=== PATIENT | female | born 1965 | race Caucasian/White ===

== ENCOUNTER 2022-09-27 14:51 | Inpatient (IN) ==
--- NOTE | 2022-09-27 15:56 | Emergency Department Note ---
Impression & Plan Hyponatremia, HTN (hypertension), CKD (chronic kidney disease), Anemia ED Provider Note NAME: MARIO EISENBERG AGE: 56 SEX: F : 1965 ARRIVES VIA: Walk-In INFORMANT: Patient ED PROVIDER(S): Santo Malloy DO CHIEF COMPLAINT: weakness and leg swelling HPI: Patient is a 56-year-old female who presents the ER for weakness referred in by nephrology. Patient has stage IV kidney disease per her report. She follows with nephrology. She has been having swelling in her legs which has been going on for the past 24 hours. She denies all other complaints. Denies any headache or change in vision. No chest pain or shortness of breath. No nausea vomiting or diarrhea. No dysuria urgency or frequency. No other exacerbating or remitting factors. She has had a Mccormick for over a year. ROS: See above HPI for pertinent positives & negatives. A total of 10 systems reviewed and were otherwise negative. PAST MEDICAL HISTORY:See Below PAST SURGICAL HISTORY:See Below FAMILY HISTORY:See Below SOCIAL HISTORY:See Below HOME MEDICATIONS:See Below ALLERGIES:See Below VITALS:See Below PHYSICAL EXAMINATION: GENERAL: Sitting up in bed, alert, well appearing, well nourished, no distress, non-toxic EYE EXAM: normal conjunctiva. OROPHARYNX: no exudate, no erythema, lips, buccal mucosa, and tongue normal and mucous membranes are moist NECK: supple, no nuchal rigidity, no adenopathy, non-tender LUNGS: Clear to auscultation. Normal chest wall mechanics HEART: no murmurs, S1 normal and S2 normal ABDOMEN: abdomen soft, non-tender, normo-active bowel sounds, no masses, no rebound or guarding. UPPER EXTREMITIES: upper extremities are grossly normal. LOWER EXTREMITIES: Pitting edema in the bilateral lower extremities NEURO EXAM: Normal sensorium, cranial nerves II-XII grossly intact, normal speech, no gross weakness of arms, no gross weakness of legs. MEDICAL DECISION MAKING: Patient is a 56-year-old female who presents ER for feeling weak and rundown. IV was established blood work was obtained. Patient had blood work was done as an outpatient and upon arrival to the ER did call the hospitalist for admission as she already had blood work done today. They are gracious enough to see the patient prior to having lab results within our ER. She was referred in by her PCP. Our labs eventually showed mild anemia at 9.1. No old to compare to. BMP with a hyponatremia at 119. Creatinine was at 2.67. This consistent with baseline. proBNP was elevated at 558. UA resulted after admission which showed UTI. Will defer to the hospitalist for further care. Triage Nursing notes reviewed. Limited review of prior medical records performed Vital Signs: reviewed and remarkable for HTN and hypothermic Differential diagnosis: Infection, dehydration, metabolic abnormality, hypo/hyperglycemia, electrolyte disturbance, anemia, hypoxia, cardiac sources, intracerebral event, toxicologic, neurologic, as well as other pathologies. ER treatment provided: See below Diagnostics interpreted by me: ECG: Sinus bradycardia rate of 57 Normal axis T wave inversion in lead III QTC 457 Cardiac Monitoring: An order was placed for continuous cardiac monitoring. The monitor shows a rate of 60 with sinus rhythm. Laboratory studies: As stated above and show below. 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: No Beliefs That Will Affect Care: None Current Living Situation: Family Current Living Situation Comment: Lives with daughter Other Information That Helps Us Care for You: No Feels Safe at Home: Yes Safety Concerns: Feels Safe At This Time Assistive Devices: Denture - Upper, Denture - Lower, Glasses, Oxygen - at Night and Walker Allergies Allergies Allergy/AdvReac Type Severity Reaction Status Date / Time No Known Allergies Allergy Unverified 09/27/22 16:51 Home Meds Home Medications Medication Instructions Recorded Confirmed albuterol sulfate 90 mcg/actuation 2 puff inhalation Q4 PRN Shortness 09/27/22 09/27/22 aerosol inhaler (Ventolin HFA) Of Breath Or Wheezing amlodipine 5 mg tablet 5 mg PO QAM 09/27/22 09/27/22 aspirin 81 mg tablet,delayed 81 mg PO DAILY 09/27/22 09/27/22 release atorvastatin 40 mg tablet 40 mg PO QAM 09/27/22 09/27/22 dulaglutide 3 mg/0.5 mL 3 mg subcut WE 09/27/22 09/27/22 subcutaneous pen injector (Trulicity) fluticasone furoate 100 1 ea inhalation DAILY 09/27/22 09/27/22 mcg-vilanterol 25 mcg/dose inhalation powder (Breo Ellipta) furosemide 80 mg tablet 160 mg PO BID 09/27/22 09/27/22 insulin glargine U-300 conc 300 16 unit subcut HS 09/27/22 09/27/22 unit/mL (3 mL) subcutaneous pen (Toujeo Max U-300 SoloStar) metoprolol succinate 50 mg 50 mg PO QAM 09/27/22 09/27/22 tablet,extended release 24 hr nicotine 21 mg/24 hr daily 1 patch topical DIRECTED 09/27/22 09/27/22 transdermal patch nystatin 100,000 unit/gram topical 1 applic topical DIRECTED 09/27/22 09/27/22 powder pregabalin 25 mg capsule 25 mg PO TID 09/27/22 09/27/22 tiotropium bromide 2.5 2 puff inhalation QAM 09/27/22 09/27/22 mcg/actuation mist for inhalation (Spiriva Respimat) Results & Data (ED) Vital Signs Vital Signs - 24 hr 09/27/22 14:54 Temperature 35.8 C L Temperature Source Temporal Artery Scan Pulse Rate 57 L Respiratory Rate 18 Respiratory Effort / Characteristics Non-Labored Respiratory Depth Normal Respiratory Pattern Regular Blood Pressure 168/99 H Blood Pressure Mean 122 Pulse Oximetry 96 Oxygen Delivery Method Room Air Sepsis Recent Fever Within 48 Hours No Sepsis New/Unexplained Change in Mental Status N/A Sepsis Action Taken by Nursing No Action Required Laboratory Data Result diagrams: 09/27/22 15:37 09/27/22 19:20 Lab Results 09/27/22 09/27/22 09/27/22 Range/Units 15:37 15:37 15:37 WBC 5.94 (4.8-10.8) K/ul RBC 2.99 L (3.93-5.22) M/uL Hgb 9.1 L (12.0-16.0) g/dl Hct 26.6 L (34.1-44.9) % MCV 89.0 (80.0-100.0) fL MCH 30.4 (25.0-34.0) pg MCHC 34.2 (32.0-36.0) g/dL RDW Std Deviation 39.8 (36.4-46.3) fL RDW Coeff of Miguelangel 12.3 (11.5-14.5) % Plt Count 147 (130-400) K/uL MPV 10.0 (9.4-12.3) fL Immature Gran % (Auto) 0.5 % Neut % (Auto) 72.1 % Lymph % (Auto) 17.8 % [place] % (Auto) 5.6 % Eos % (Auto) 3.2 % Baso % (Auto) 0.8 % Neut # (Auto) 4.28 (1.4-6.5) K/uL Lymph # (Auto) 1.06 L (1.2-3.4) K/uL [place] # (Auto) 0.33 (0.24-0.82) K/uL Eos # (Auto) 0.19 (0-0.50) K/uL Baso # (Auto) 0.05 (0-0.2) K/uL Immature Gran # (Auto) 0.03 H (0.00-0.02) K/uL Sodium 119 L* (136-145) mmol/L Potassium 4.6 (3.5-5.1) mmol/L Chloride 88 L (98-107) mmol/L Carbon Dioxide 22 (21-32) mmol/L Anion Gap 9 (3-11) BUN 58 H (6-23) mg/dl Creatinine 2.54 H (0.6-1.2) mg/dl Est Cr Clr Drug Dosing Not Reportable Est GFR ( Amer) 23.3 ml/min Est GFR (Non-Af Amer) 20.1 ml/min BUN/Creatinine Ratio 22.8 H (10-20) Glucose 136 H (70-99(Fasting)) mg/dl Osmolality (280-300) mOsm/kg Calcium 7.2 L (8.5-10.1) mg/dl Total Bilirubin 0.4 (0.2-1.0) mg/dl AST 13 (13-39) U/L ALT 14 (7-52) U/L Alkaline Phosphatase 238 H (34-104) U/L B-Natriuretic Peptide 558 H (0-100) pg/ml Total Protein 5.9 L (6.0-8.3) gm/dl Albumin 3.2 L (3.4-5.0) gm/dl Globulin 2.7 (2.5-4.0) gm/dl Albumin/Globulin Ratio 1.2 (0.9-2) 09/27/22 Range/Units 15:37 WBC (4.8-10.8) K/ul RBC (3.93-5.22) M/uL Hgb (12.0-16.0) g/dl Hct (34.1-44.9) % MCV (80.0-100.0) fL MCH (25.0-34.0) pg MCHC (32.0-36.0) g/dL RDW Std Deviation (36.4-46.3) fL RDW Coeff of Miguelangel (11.5-14.5) % Plt Count (130-400) K/uL MPV (9.4-12.3) fL Immature Gran % (Auto) % Neut % (Auto) % Lymph % (Auto) % [place] % (Auto) % Eos % (Auto) % Baso % (Auto) % Neut # (Auto) (1.4-6.5) K/uL Lymph # (Auto) (1.2-3.4) K/uL [place] # (Auto) (0.24-0.82) K/uL Eos # (Auto) (0-0.50) K/uL Baso # (Auto) (0-0.2) K/uL Immature Gran # (Auto) (0.00-0.02) K/uL Sodium (136-145) mmol/L Potassium (3.5-5.1) mmol/L Chloride (98-107) mmol/L Carbon Dioxide (21-32) mmol/L Anion Gap (3-11) BUN (6-23) mg/dl Creatinine (0.6-1.2) mg/dl Est Cr Clr Drug Dosing Est GFR ( Amer) ml/min Est GFR (Non-Af Amer) ml/min BUN/Creatinine Ratio (10-20) Glucose (70-99(Fasting)) mg/dl Osmolality 269 L (280-300) mOsm/kg Calcium (8.5-10.1) mg/dl Total Bilirubin (0.2-1.0) mg/dl AST (13-39) U/L ALT (7-52) U/L Alkaline Phosphatase (34-104) U/L B-Natriuretic Peptide (0-100) pg/ml Total Protein (6.0-8.3) gm/dl Albumin (3.4-5.0) gm/dl Globulin (2.5-4.0) gm/dl Albumin/Globulin Ratio (0.9-2) Administered Medications Acetaminophen (Acetaminophen 325 Mg Tab) 650 mg PO Q4H PRN PRN Reason: Pain or Fever Stop: 10/27/22 16:29 Last Admin: 09/27/22 19:24 Dose: 650 mg Documented By: KAREN Insulin Aspart (Insulin Aspart Per Unit) 0 units SC ACHS [facility] Stop: 10/27/22 20:59 Last Admin: 09/27/22 21:10 Dose: Not Given Documented By: KAREN Nicotine (Nicotine 21 Mg/24 Hr Tdsy) 21 mg TD Q24H [facility] Stop: 10/27/22 19:59 Last Admin: 09/27/22 20:25 Dose: Not Given Documented By: KAREN Imaging Data Radiologist's Impression: Chest X-Ray 09/27/22 15:56 XR chest 1V portable CLINICAL HISTORY: Weakness. Shortness of breath. COMPARISON STUDY: No previous studies for comparison. FINDINGS: There is no pneumothorax. Blunting of the right costophrenic angle suggests a trace right pleural effusion. Suspected trace left pleural effusion. Moderate enlargement of the cardiac silhouette is noted. There is pulmonary vascular congestion with possible mild pulmonary edema. No consolidation is identified to suggest pneumonia. IMPRESSION: 1. Cardiomegaly. Pulmonary vascular congestion with possible mild pulmonary edema. 2. Trace bilateral pleural effusions. ACT 112: Negative or not required by law. Electronically signed by: Hamilton Alexander M.D. 09/27/2022 4:35 PM Discharge Plan Visit Data Chief Complaint: Referred by Doctor Stated Complaint: SODIUM LEVELS LOW ED Provider: Santo Malloy Discharge Problem: Hyponatremia, HTN (hypertension), CKD (chronic kidney disease), Anemia Patient Disposition: Admitted As Inpatient Discharge Instructions Interventions: ED Discharge Assessment Last Done: 09/27/22 17:51
[2022-09-27 16:11] LABS: Basophils # (auto) 0.05 K/uL (0-0.2); Basophils % (auto) 0.8 %; Eosinophils # (auto) 0.19 K/uL (0-0.50); Eosinophils % (auto) 3.2 %; Hematocrit (blood only) 26.6 % (34.1-44.9); Hemoglobin 9.1 g/dl (12.0-16.0); Immature Granulocytes # (auto) 0.03 K/uL (0.00-0.02); Immature Granulocytes % (auto) 0.5 %; Lymphocytes # (auto) 1.06 K/uL (1.2-3.4); Lymphocytes % (auto) 17.8 %; Mean Corpuscular Hemoglobin 30.4 pg (25.0-34.0); Mean Corpuscular Hgb Conc 34.2 g/dL (32.0-36.0); Monocytes # (auto) 0.33 K/uL (0.24-0.82); Monocytes % (auto) 5.6 %; Neutrophils # (auto) 4.28 K/uL (1.4-6.5); Neutrophils % (auto) 72.1 %; Platelet Count 147 K/uL (130-400); RDW Coefficient of Variation 12.3 % (11.5-14.5); RDW Standard Deviation 39.8 fL (36.4-46.3); Red Blood Count 2.99 M/uL (3.93-5.22); White Blood Count 5.94 K/ul (4.8-10.8)
[2022-09-27] MEDS ORDERED: DEXTROSE 50% 50 ML SYRINGE IV PRN ×2 (16:30→19:30)
[2022-09-27] MEDS ORDERED: PHARMACY GLYCEMIC MGMT CONSULT PRN (16:30)
[2022-09-27] MEDS ORDERED: GLUCOSE 10 TAB/TUBE PO PRN ×2 (16:30→19:30)
[2022-09-27] MEDS ORDERED: GLUCAGON FOR INJ 1 MG VIAL SQ PRN (16:30)
[2022-09-27] MEDS ORDERED: POLYETHYLENE (MIRALAX) 17 GM PACK PO PRN (16:30)
[2022-09-27] MEDS ORDERED: GLUCOSE 40% GEL 15 GM TUBE PO PRN ×2 (16:30→19:30)
[2022-09-27] MEDS ORDERED: CARBOHYDRATES FOR HYPOGLYCEMIA PO PRN ×2 (16:30→19:30)
--- NOTE | 2022-09-27 16:36 | XRay Report ---
XR chest 1V portable CLINICAL HISTORY: Weakness. Shortness of breath. COMPARISON STUDY: No previous studies for comparison. FINDINGS: There is no pneumothorax. Blunting of the right costophrenic angle suggests a trace right p leural effusion. Suspected trace left pleural effusion. Moderate enlargement of the cardiac silhouett e is noted. There is pulmonary vascular congestion with possible mild pulmonary edema. No consolidati on is identified to suggest pneumonia. IMPRESSION: 1. Cardiomegaly. Pulmonary vascular congestion with possible mild pulmonary edema. 2. Trace bilateral pleural effusions. ACT 112: Negative or not required by law. Electronically signed by: Hamilton Alexander M.D. 09/27/2022 4:35 PM
--- NOTE | 2022-09-27 16:47 | History & Physical Report ---
Date of Service September 27, 2022 Assessment & Plan (1) Hyponatremia: Plan: - acute on chronic hyponatremia in the setting of advancing CKD and nephrotic syndrome - urine studies ordered - urine protein/Cr ratio ordered - renal consult - home lasix recently increased to 160mg BID - will start on 80mg IV lasix BID while inpatient - PCU admission - BMP q8h (2) (HFpEF) heart failure with preserved ejection fraction: Plan: - does not appear in exacerbation - LE edema likely from nephrotic syndrome and worsening hyponatremia - continue home medications - CXR with pulmonary edema but exam is unremarkable and satting 95% on RA - lasix management as above (3) HTN (hypertension): Plan: - continue home meds (4) DM2 (diabetes mellitus, type 2): Plan: - A1c ordered - FSG AC+HS - continue home insulin - pharmacy glycemic consult placed - diabetic diet (5) HLD (hyperlipidemia): Plan: - continue statin (6) CKD (chronic kidney disease): Plan: - progressive kidney disease being followed by renal as outpatient - discussion of dialysis has been ongoing - monitor Cr - renal consulted for hyponatremia as above - avoid nephrotoxic medications (7) Anemia: Plan: - anemia of chronic disease, CKD - no signs of bleeding - hgb near baseline 9-10 - will monitor for now (8) COPD (chronic obstructive pulmonary disease): Plan: - does not appear to be in exacerbation - continue home inhalers Plan DVT ppx: heparin SC Code Status: Full Code Dispo: PCU Reggie Pickett MD Hospital Medicine History of Present Illness Chief Complaint: hyponatremia Primary Care Provider: Rodger Laguerre MD The patient is a 56 year old woman with pmh HTN, HFpEF. CKDIV, COPD, DM2, neurogenic bladder with chronic indwelling villela who presents with 24 hours of leg swelling and found to have Na 119 on outpatient labs, sent in by nephrology. Patient denies complaints except some mild weakness in lower extremities. Reports increased swelling in lower extremities as well. Denies chest pain, shortness of breath, n/v/d, abdominal pain, cough, fever or chills, discomfort around villela catheter. Has not changed her diet or appetite recently and recently had her lasix increased to 160mg daily by inspector clip on sunglasses due to sodium levels. Patient denies any other weakness or light headedness. In the ED, vitals were significant for temp 35.8C, HR 57, BP 168/99, 96% on RA. Labs were significant for hgb 9.1 (baseline around 10), NA 119, GFR 20, Cr 2.5 (Baseline around 2.2-2.5), Cl 88, ALP 238, BNP 558. She was admitted to medicine for management of hyponatremia. Allergies Allergy/AdvReac Type Severity Reaction Status Date / Time No Known Allergies Allergy Unverified 09/27/22 16:51 Home Medications Medication Instructions Recorded Confirmed Type albuterol sulfate 90 mcg/actuation 2 puff inhalation Q4 PRN Shortness 09/27/22 09/27/22 History aerosol inhaler (Ventolin HFA) Of Breath Or Wheezing amlodipine 5 mg tablet 5 mg PO QAM 09/27/22 09/27/22 History aspirin 81 mg tablet,delayed 81 mg PO DAILY 09/27/22 09/27/22 History release atorvastatin 40 mg tablet 40 mg PO QAM 09/27/22 09/27/22 History dulaglutide 3 mg/0.5 mL 3 mg subcut WE 09/27/22 09/27/22 History subcutaneous pen injector (Trulicity) fluticasone furoate 100 1 ea inhalation DAILY 09/27/22 09/27/22 History mcg-vilanterol 25 mcg/dose inhalation powder (Breo Ellipta) furosemide 80 mg tablet 160 mg PO BID 09/27/22 09/27/22 History insulin glargine U-300 conc 300 16 unit subcut HS 09/27/22 09/27/22 History unit/mL (3 mL) subcutaneous pen (Toujeo Max U-300 SoloStar) metoprolol succinate 50 mg 50 mg PO QAM 09/27/22 09/27/22 History tablet,extended release 24 hr nicotine 21 mg/24 hr daily 1 patch topical DIRECTED 09/27/22 09/27/22 History transdermal patch nystatin 100,000 unit/gram topical 1 applic topical DIRECTED 09/27/22 09/27/22 History powder pregabalin 25 mg capsule 25 mg PO TID 09/27/22 09/27/22 History tiotropium bromide 2.5 2 puff inhalation QAM 09/27/22 09/27/22 History mcg/actuation mist for inhalation (Spiriva Respimat) Past Med/Surg History Social History Smoking Status: Current every day smoker Tobacco Type: Cigarettes Preferred Language: Kiswahili Feels Safe at Home: Yes Review of Systems Review of Systems: All systems reviewed & are unremarkable except as noted in Subjective Physical Exam Physical Exam: GENERAL: Sitting up in bed, alert, well appearing, well nourished, no distress, non-toxic. Morbidly obese EYE EXAM: normal conjunctiva. OROPHARYNX: no exudate, no erythema, lips, buccal mucosa, and tongue normal and mucous membranes are moist NECK: supple, no nuchal rigidity, no adenopathy, non-tender LUNGS: Clear to auscultation. Normal chest wall mechanics HEART: no murmurs, S1 normal and S2 normal ABDOMEN: abdomen soft, non-tender, normo-active bowel sounds, no masses, no rebound or guarding. UPPER EXTREMITIES: upper extremities are grossly normal. LOWER EXTREMITIES: Pitting edema in the bilateral lower extremities. healing 2cm wound on medial R lower leg without erythema or drainage NEURO EXAM: Normal sensorium, cranial nerves II-XII grossly intact, normal speech, no gross weakness of arms, no gross weakness of legs. Results & Data Results & Data ([facility]) Vital Signs (Past 12 Hours) Vital Signs Temp Pulse Resp BP Pulse Ox O2 Del Method 09/27/22 14:54 35.8 C L 57 L 18 168/99 H 96 Room Air Diagnostic Findings Laboratory Results WBC 5.94 K/ul (4.8-10.8) 09/27/22 15:37 RBC 2.99 M/uL (3.93-5.22) L 09/27/22 15:37 Hgb 9.1 g/dl (12.0-16.0) L 09/27/22 15:37 Hct 26.6 % (34.1-44.9) L 09/27/22 15:37 MCV 89.0 fL (80.0-100.0) 09/27/22 15:37 MCH 30.4 pg (25.0-34.0) 09/27/22 15:37 MCHC 34.2 g/dL (32.0-36.0) 09/27/22 15:37 RDW Std Deviation 39.8 fL (36.4-46.3) 09/27/22 15:37 RDW Coeff of Miguelangel 12.3 % (11.5-14.5) 09/27/22 15:37 Plt Count 147 K/uL (130-400) 09/27/22 15:37 MPV 10.0 fL (9.4-12.3) 09/27/22 15:37 Immature Gran % (Auto) 0.5 % 09/27/22 15:37 Neut % (Auto) 72.1 % 09/27/22 15:37 Lymph % (Auto) 17.8 % 09/27/22 15:37 [place] % (Auto) 5.6 % 09/27/22 15:37 Eos % (Auto) 3.2 % 09/27/22 15:37 Baso % (Auto) 0.8 % 09/27/22 15:37 Neut # (Auto) 4.28 K/uL (1.4-6.5) 09/27/22 15:37 Lymph # (Auto) 1.06 K/uL (1.2-3.4) L 09/27/22 15:37 [place] # (Auto) 0.33 K/uL (0.24-0.82) 09/27/22 15:37 Eos # (Auto) 0.19 K/uL (0-0.50) 09/27/22 15:37 Baso # (Auto) 0.05 K/uL (0-0.2) 09/27/22 15:37 Immature Gran # (Auto) 0.03 K/uL (0.00-0.02) H 09/27/22 15:37 Impressions Chest X-Ray 09/27/22 15:56 XR chest 1V portable CLINICAL HISTORY: Weakness. Shortness of breath. COMPARISON STUDY: No previous studies for comparison. FINDINGS: There is no pneumothorax. Blunting of the right costophrenic angle suggests a trace right pleural effusion. Suspected trace left pleural effusion. Moderate enlargement of the cardiac silhouette is noted. There is pulmonary vascular congestion with possible mild pulmonary edema. No consolidation is identified to suggest pneumonia. IMPRESSION: 1. Cardiomegaly. Pulmonary vascular congestion with possible mild pulmonary edema. 2. Trace bilateral pleural effusions. ACT 112: Negative or not required by law. Electronically signed by: Hamilton Alexander M.D. 09/27/2022 4:35 PM Medications Administered Current Inpatient Medications Acetaminophen (Acetaminophen 325 Mg Tab) 650 mg PO Q4H PRN PRN Reason: Pain or Fever Stop: 10/27/22 16:29 Dextrose (Dextrose 50% 50 Ml Syringe) 25 - 50 ml IV UD PRN; Protocol PRN Reason: Hypoglycemia Protocol Stop: 10/27/22 16:29 Glucagon (Glucagon For Inj 1 Mg Vial) 1 mg SQ UD PRN; Protocol PRN Reason: Hypoglycemia Protocol Stop: 10/27/22 16:29 Glucose (Glucose 40% Gel 15 Gm Tube) 15 - 30 gm PO UD PRN; Protocol PRN Reason: Hypoglycemia Protocol Stop: 10/27/22 16:29 Glucose (Glucose 10 Tab/Tube) 4 - 8 tab PO UD PRN; Protocol PRN Reason: Hypoglycemia Treatment Stop: 10/27/22 16:29 Miscellaneous (Carbohydrates For Hypoglycemia ) 15 - 30 gm PO UD PRN PRN Reason: Hypoglycemia Protocol Stop: 10/27/22 16:29 Miscellaneous Information (Pharmacy Glycemic Mgmt Consult) 1 each N/A UD PRN PRN Reason: Consult Stop: 10/27/22 16:29 Polyethylene Glycol (Polyethylene (Miralax) 17 Gm Pack) 17 gm PO DAILY PRN PRN Reason: Constipation Stop: 10/27/22 16:29 Code Status & VTE Plan Code Status Full code VTE Prophylaxis Plan VTE Prophylaxis will be ordered: Yes
--- NOTE | 2022-09-27 16:57 | Electrocardiogram Report ---
Test Reason : Blood Pressure : / mmHG Vent. Rate : 057 BPM Atrial Rate : 057 BPM P-R Int : 172 ms QRS Dur : 090 ms QT Int : 470 ms P-R-T Axes : 000 013 005 degrees QTc Int : 457 ms Sinus bradycardia Low voltage QRS Septal infarct , age undetermined Nonspecific T wave abnormality Abnormal ECG No previous ECGs available Confirmed by Sergio Yañez ([id number]) on 09/27/2022 4:57:04 PM Referred By: Confirmed By:Sergio Yañez
[2022-09-27 17:10] LABS: Alanine Aminotransferase 14 U/L (7-52); Albumin Globulin Ratio 1.2 (0.9-2); Albumin Level 3.2 gm/dl (3.4-5.0); Alkaline Phosphatase 238 U/L (34-104); Anion Gap 9 (3-11); Aspartate Aminotransferase 13 U/L (13-39); BUN Creatinine Ratio 22.8 (10-20); Bilirubin,Total 0.4 mg/dl (0.2-1.0); Blood Urea Nitrogen 58 mg/dl (6-23); Calcium 7.2 mg/dl (8.5-10.1); Carbon Dioxide 22 mmol/L (21-32); Chloride 88 mmol/L (98-107); Est GFR (African American) 23.3 ml/min; Est GFR (Non-African American) 20.1 ml/min; Globulin 2.7 gm/dl (2.5-4.0); Glucose 136 mg/dl (70-99(Fasting)); Potassium 4.6 mmol/L (3.5-5.1); Sodium 119 mmol/L (136-145); Total Protein 5.9 gm/dl (6.0-8.3)
[2022-09-27] MEDS ORDERED: ALBUTEROL HFA 8 GM INHALER INH PRN (18:11)
[2022-09-27] MEDS: ACETAMINOPHEN 325 MG TAB PO PRN (19:24)
[2022-09-27] MEDS ORDERED: GLUCAGON FOR INJ 1 MG VIAL IM PRN (19:30)
[2022-09-27 19:48] LABS: Appearance Urine Clear (Clear); Bacteria Urine Automated 1+ (Negative); Bilirubin Urine Negative (Negative); Blood Urine 1+ (Negative); Cast Urine Automated 0 /lpf (0-5); Color Urine Yellow; Epithelial Cell Urine Auto 0-5 /lpf (0-5); Glucose Urine UA Trace (Negative); Ketones Urine Negative (Negative); Leukocyte Esterase Urine Trace (Negative); Nitrite Urine Positive (Negative); Protein Urine 2+ (Negative); RBC Urine Automated 0-4 /hpf (0-4); Specific Gravity Urine 1.006 (1.000-1.030); Urobilinogen Urine Negative (Negative)
[2022-09-27 20:20] LABS: BUN Creatinine Ratio 21.7 (10-20); Calcium 7.3 mg/dl (8.5-10.1); Creatinine Clr Calc Pharmacy 25.3 ml/min; Est GFR (African American) 21.9 ml/min; Est GFR (Non-African American) 18.9 ml/min; Potassium 4.5 mmol/L (3.5-5.1)
[2022-09-27 20:21] LABS: Creatinine Urine Random 9.7 mg/dl; Protein Creatinine Ratio Urine 14.4 (0-0.2); Total Protein Urine Random 139.8 mg/dl (0-11.9)
[2022-09-27] MEDS: NICOTINE 21 MG/24 HR TDSY TD SCH (20:25)
[2022-09-27] MEDS ORDERED: NON-FORMULARY MEDICATION (Insulin Glargine U-300 Conc [Toujeo Max U-300 Solostar] 300 unit SQ SCH (21:00)
[2022-09-27] MEDS ORDERED: LANTUS PER UNIT CHARGE SQ SCH (21:00)
[2022-09-27] MEDS: INSULIN ASPART PER UNIT SC SCH (21:10)
[2022-09-27] MEDS: PREGABALIN 25 MG CAP PO SCH (21:22)
[2022-09-27] MEDS: FUROSEMIDE 40 MG/4 ML VIAL IV SCH (21:23)
[2022-09-27 21:54] LABS: Thyroid Stimulating Hormone 5.331 uIu/ml (0.300-4.500)
[2022-09-27 22:26] LABS: T4 Free Thyroxine 0.74 ng/dl (0.61-1.60)
[2022-09-28 01:00] LABS: BUN Creatinine Ratio 21.8 (10-20); Calcium 6.9 mg/dl (8.5-10.1); Creatinine Clr Calc Pharmacy 24.9 ml/min; Est GFR (African American) 21.5 ml/min; Est GFR (Non-African American) 18.6 ml/min; Potassium 4.6 mmol/L (3.5-5.1)
[2022-09-28 07:47] LABS: Magnesium 1.9 mg/dl (1.7-2.4); Phosphorus 6.2 mg/dl (2.5-4.9)
[2022-09-28 07:50] LABS: BUN Creatinine Ratio 21.4 (10-20); Calcium 6.8 mg/dl (8.5-10.1); Creatinine Clr Calc Pharmacy 24.2 ml/min; Est GFR (African American) 20.7 ml/min; Est GFR (Non-African American) 17.9 ml/min
[2022-09-28 07:53] LABS: Hematocrit (blood only) 23.5 % (34.1-44.9); Hemoglobin 8.1 g/dl (12.0-16.0); Mean Corpuscular Hemoglobin 30.7 pg (25.0-34.0); Mean Corpuscular Hgb Conc 34.5 g/dL (32.0-36.0); Platelet Count 155 K/uL (130-400); RDW Coefficient of Variation 12.4 % (11.5-14.5); RDW Standard Deviation 39.8 fL (36.4-46.3); Red Blood Count 2.64 M/uL (3.93-5.22); White Blood Count 5.45 K/ul (4.8-10.8)
[2022-09-28 07:54] LABS: Basophils # (auto) 0.03 K/uL (0-0.2); Basophils % (auto) 0.6 %; Eosinophils # (auto) 0.08 K/uL (0-0.50); Eosinophils % (auto) 1.5 %; Immature Granulocytes # (auto) 0.02 K/uL (0.00-0.02); Immature Granulocytes % (auto) 0.4 %; Lymphocytes # (auto) 0.89 K/uL (1.2-3.4); Lymphocytes % (auto) 16.3 %; Monocytes # (auto) 0.39 K/uL (0.24-0.82); Monocytes % (auto) 7.2 %; Neutrophils # (auto) 4.04 K/uL (1.4-6.5)
[2022-09-28] MEDS: INSULIN ASPART PER UNIT SC SCH ×4 (08:00→21:36)
[2022-09-28] MEDS: ASPIRIN 81 MG ECTAB PO SCH (08:34)
[2022-09-28] MEDS: ATORVASTATIN 40 MG TAB PO SCH (08:35)
[2022-09-28] MEDS: UMECLIDINIUM BROMIDE 62.5MCG/BLISTER 7 PUFFS/INHALER INH SCH (08:35)
[2022-09-28] MEDS: FLUTICASONE/VILANTEROL 100/25MCG 14 PUFFS/INHALER INH SCH (08:35)
[2022-09-28] MEDS: FUROSEMIDE 40 MG/4 ML VIAL IV SCH ×3 (08:35→17:32)
[2022-09-28] MEDS: PREGABALIN 25 MG CAP PO SCH ×2 (08:38→21:22)
[2022-09-28] MEDS ORDERED: LANTUS PER UNIT CHARGE SQ SCH (09:00)
--- NOTE | 2022-09-28 09:58 | Nephrology Consultation ---
Date of Consultation September 28, 2022 Assessment & Plan (1) Hyponatremia: Patient with hypervolemic hyponatremia. Sodium is 119 since 09/27/2022 at 3 PM. She does not have mental status changes. She however remains pulm overload. -Fluid restriction of 1.2 L daily -Increase Lasix to 80 mg IV 3 times daily -Monitor input output and daily standing weight if able (2) CKD (chronic kidney disease): Patient with CKD stage IV due to diabetic nephropathy. Patient admitted with volume overload and hyponatremia. Will attempt aggressive diuresis. Patient is close to needing dialysis particularly if she fails diuresis. -Monitor renal function daily BMP -Avoid nephrotoxins such as contrast and renally dose medication for current GFR. History of Present Illness Reason for Consultation: Hyponatremia, CKD Requesting Physician: Reggie Pickett MD Attending Physician: Reggie Pickett MD History of Present Illness This is a 56-year-old female with history of CKD stage IV followed by Dr. Harley, type 2 diabetes, diastolic CHF, hypertension, neurogenic bladder with chronic Mccormick catheter who was admitted with the abnormal labs including hyponatremia with sodium of 119 and creatinine of 2.5. Main complaint is leg swelling which has been progressively getting worse over the past few weeks. She is on diuretics at home and reports compliance. Her daughter manages her medications. Patient is not sure what she takes. She received IV Lasix 80 mg twice daily. Patient is making urine about 1.5 L since admission and was net - 1.3 L. Sodium remains same at 119. She also has anemia with hemoglobin of 8.1. She reports some improvement since admission. No nausea or vomiting. No NSAID use. Allergies Allergy/AdvReac Type Severity Reaction Status Date / Time No Known Allergies Allergy Unverified 09/27/22 16:51 Home Medications Medication Instructions Recorded Confirmed Type albuterol sulfate 90 mcg/actuation 2 puff inhalation Q4 PRN Shortness 09/27/22 09/27/22 History aerosol inhaler (Ventolin HFA) Of Breath Or Wheezing amlodipine 5 mg tablet 5 mg PO QAM 09/27/22 09/27/22 History aspirin 81 mg tablet,delayed 81 mg PO DAILY 09/27/22 09/27/22 History release atorvastatin 40 mg tablet 40 mg PO QAM 09/27/22 09/27/22 History dulaglutide 3 mg/0.5 mL 3 mg subcut WE 09/27/22 09/27/22 History subcutaneous pen injector (Trulicity) fluticasone furoate 100 1 ea inhalation DAILY 09/27/22 09/27/22 History mcg-vilanterol 25 mcg/dose inhalation powder (Breo Ellipta) furosemide 80 mg tablet 160 mg PO BID 09/27/22 09/27/22 History insulin glargine U-300 conc 300 16 unit subcut HS 09/27/22 09/27/22 History unit/mL (3 mL) subcutaneous pen (Toujeo Max U-300 SoloStar) metoprolol succinate 50 mg 50 mg PO QAM 09/27/22 09/27/22 History tablet,extended release 24 hr nicotine 21 mg/24 hr daily 1 patch topical DIRECTED 09/27/22 09/27/22 History transdermal patch nystatin 100,000 unit/gram topical 1 applic topical DIRECTED 09/27/22 09/27/22 History powder pregabalin 25 mg capsule 25 mg PO TID 09/27/22 09/27/22 History tiotropium bromide 2.5 2 puff inhalation QAM 09/27/22 09/27/22 History mcg/actuation mist for inhalation (Spiriva Respimat) Patient History Social History Smoking Status: Current every day smoker Tobacco Type: Cigarettes Hx Alcohol Use: No Hx Substance Use: No Preferred Language: [place]an Communication Ability: Effective Director Trade Required: No Beliefs That Will Affect Care: None Current Living Situation: Family Current Living Situation Comment: Lives with daughter Other Information That Helps Us Care for You: No Feels Safe at Home: Yes Safety Concerns: Feels Safe At This Time Assistive Devices: Denture - Upper, Denture - Lower, Glasses, Oxygen - at Night and Walker Review of Systems Review of Systems: All other systems were reviewed and negative except as noted in HPI Physical Exam Physical Exam: General exam: Appears comfortable, no acute distress HEENT: Pupils are equal and reactive to light Neck: No JVD, neck is supple trachea is midline Respiratory system: Clear breath sounds bilaterally. Gastrointestinal: Abdomen is soft, non distended, non tender, bowel sounds are present CVS: Regular rate and rhythm. No murmurs, rubs or gallops Musculoskeletal: No joint or muscle tenderness Extremities: Non tender, 1+ edema, peripheral pulses are present Neuro: Oriented, no tremors, no focal neurological deficits Skin: No rashes Results & Data ([facility]) Vital Signs (Past 12 Hours) Vital Signs Temp Pulse Pulse Resp BP Pulse Ox O2 Del Method 09/28/22 07:59 36.7 C 59 L 18 110/60 94 Nasal Cannula 09/28/22 06:15 73 09/28/22 03:23 36.7 C 69 18 109/62 93 Nasal Cannula 09/27/22 23:11 64 09/27/22 22:51 36.7 C 68 18 104/63 92 Nasal Cannula O2 Flow Rate 09/28/22 07:59 2 09/28/22 06:15 09/28/22 03:23 2.0 09/27/22 23:11 09/27/22 22:51 2.0 Laboratory Results 09/28/22 07:16 09/27/22 09/27/22 09/28/22 15:37 15:37 07:16 WBC 5.94 5.45 RBC 2.99 L 2.64 L MCV 89.0 89.0 MCH 30.4 30.7 MCHC 34.2 34.5 RDW Std Deviation 39.8 39.8 RDW Coeff of Miguelangel 12.3 12.4 Plt Count 147 155 MPV 10.0 10.0 Phosphorus Albumin 3.2 L 09/28/22 07:16 WBC RBC MCV MCH MCHC RDW Std Deviation RDW Coeff of Miguelangel Plt Count MPV Phosphorus 6.2 H Albumin
[2022-09-28 10:17] LABS: Estimated Average Glucose 134 mg/dl; Hemoglobin A1C 6.3 % (4.5-5.6)
--- NOTE | 2022-09-28 10:46 | Hospitalist Progress Note ---
Date of Service September 28, 2022 Assessment & Plan (1) Hyponatremia: Plan: - acute on chronic hyponatremia in the setting of advancing CKD and nephrotic syndrome - urine protein/Cr ratio elevated - renal consult - recs appreciated - fluid restcition 1200cc daily - home lasix recently increased to 160mg BID - increase lasix to 80mg IV TID while inpatient - PCU admission - BMP q8h (2) (HFpEF) heart failure with preserved ejection fraction: Plan: - does not appear in exacerbation - LE edema likely from nephrotic syndrome and worsening hyponatremia - continue home medications - CXR with pulmonary edema but exam is unremarkable and satting 95% on RA - lasix management as above (3) HTN (hypertension): Plan: - continue home meds (4) DM2 (diabetes mellitus, type 2): Plan: - A1c 6.3% - FSG AC+HS - continue home insulin - pharmacy glycemic consult placed - diabetic diet (5) HLD (hyperlipidemia): Plan: - continue statin (6) CKD (chronic kidney disease): Plan: - progressive kidney disease being followed by renal as outpatient - discussion of dialysis has been ongoing - monitor Cr - renal consulted for hyponatremia as above - avoid nephrotoxic medications (7) Anemia: Plan: - anemia of chronic disease, CKD - no signs of bleeding - hgb near baseline 9-10 - will monitor for now (8) COPD (chronic obstructive pulmonary disease): Plan: - does not appear to be in exacerbation - continue home inhalers Plan DVT ppx: heparin SC Code Status: Full Code Dispo: PCU Reggie Pickett MD Hospital Medicine Admission and Anticipated Discharge Date Admission Date: September 27, 2022 Subjective Patient with HTN, HFpEF, CKDIV with nephrotic syndrome, COPD, DM2, neurogenic bladder with chronic indwelling villela found to have hyponatremia to 119 and volume overload. Started on aggressive diuresis with lasix 80mg TID, fluid restriction of 1200cc daily. Renal consulted and following. Patient reports feeling well today. Denies chest pain, shortness of breath, n/v/d, abdominal pain, fever or chills, cough. Says legs are improved from weakness standpoint and able to move them more freely. Review of Systems Review of Systems: All systems reviewed & are unremarkable except as noted in Subjective Physical Exam Physical Exam: GENERAL: Sitting up in bed, alert, well appearing, well nourished, no distress, non-toxic. Morbidly obese EYE EXAM: normal conjunctiva. OROPHARYNX: no exudate, no erythema, lips, buccal mucosa, and tongue normal and mucous membranes are moist NECK: supple, no nuchal rigidity, no adenopathy, non-tender LUNGS: Clear to auscultation. Normal chest wall mechanics HEART: no murmurs, S1 normal and S2 normal ABDOMEN: abdomen soft, non-tender, normo-active bowel sounds, no masses, no rebound or guarding. UPPER EXTREMITIES: upper extremities are grossly normal. LOWER EXTREMITIES: Pitting edema in the bilateral lower extremities with some improvement. healing 2cm wound on medial R lower leg without erythema or drainage NEURO EXAM: Normal sensorium, cranial nerves II-XII grossly intact, normal speech, no gross weakness of arms, no gross weakness of legs. Results & Data Results & Data ([facility]) Vital Signs (Past 12 Hours) Vital Signs Temp Pulse Pulse Resp BP Pulse Ox O2 Del Method 09/28/22 08:17 Room Air 09/28/22 07:59 36.7 C 59 L 18 110/60 94 Nasal Cannula 09/28/22 06:15 73 09/28/22 03:23 36.7 C 69 18 109/62 93 Nasal Cannula 09/27/22 23:11 64 09/27/22 22:51 36.7 C 68 18 104/63 92 Nasal Cannula O2 Flow Rate 09/28/22 08:17 09/28/22 07:59 2 09/28/22 06:15 09/28/22 03:23 2.0 09/27/22 23:11 09/27/22 22:51 2.0 Diagnostic Findings Laboratory Results WBC 5.45 K/ul (4.8-10.8) 09/28/22 07:16 RBC 2.64 M/uL (3.93-5.22) L 09/28/22 07:16 Hgb 8.1 g/dl (12.0-16.0) L 09/28/22 07:16 Hct 23.5 % (34.1-44.9) L 09/28/22 07:16 MCV 89.0 fL (80.0-100.0) 09/28/22 07:16 MCH 30.7 pg (25.0-34.0) 09/28/22 07:16 MCHC 34.5 g/dL (32.0-36.0) 09/28/22 07:16 RDW Std Deviation 39.8 fL (36.4-46.3) 09/28/22 07:16 RDW Coeff of Miguelangel 12.4 % (11.5-14.5) 09/28/22 07:16 Plt Count 155 K/uL (130-400) 09/28/22 07:16 MPV 10.0 fL (9.4-12.3) 09/28/22 07:16 Immature Gran % (Auto) 0.4 % 09/28/22 07:16 Neut % (Auto) 74.0 % 09/28/22 07:16 Lymph % (Auto) 16.3 % 09/28/22 07:16 Burke % (Auto) 7.2 % 09/28/22 07:16 Eos % (Auto) 1.5 % 09/28/22 07:16 Baso % (Auto) 0.6 % 09/28/22 07:16 Neut # (Auto) 4.04 K/uL (1.4-6.5) 09/28/22 07:16 Lymph # (Auto) 0.89 K/uL (1.2-3.4) L 09/28/22 07:16 Burke # (Auto) 0.39 K/uL (0.24-0.82) 09/28/22 07:16 Eos # (Auto) 0.08 K/uL (0-0.50) 09/28/22 07:16 Baso # (Auto) 0.03 K/uL (0-0.2) 09/28/22 07:16 Immature Gran # (Auto) 0.02 K/uL (0.00-0.02) 09/28/22 07:16 Sodium 119 mmol/L (136-145) L* 09/28/22 07:16 Potassium 5.0 mmol/L (3.5-5.1) 09/28/22 07:16 Chloride 91 mmol/L (98-107) L 09/28/22 07:16 Carbon Dioxide 23 mmol/L (21-32) 09/28/22 07:16 Anion Gap 5 (3-11) 09/28/22 07:16 BUN 60 mg/dl (6-23) H 09/28/22 07:16 Creatinine 2.80 mg/dl (0.6-1.2) H 09/28/22 07:16 Est Cr Clr Drug Dosing 24.2 ml/min 09/28/22 07:16 Est GFR ( Amer) 20.7 ml/min 09/28/22 07:16 Est GFR (Non-Af Amer) 17.9 ml/min 09/28/22 07:16 BUN/Creatinine Ratio 21.4 (10-20) H 09/28/22 07:16 Glucose 95 mg/dl (70-99(Fasting)) 09/28/22 07:16 POC Glucose 93 mg/dl (70-99) 09/28/22 08:23 Estimat Average Glucose 134 mg/dl 09/28/22 07:16 Hemoglobin A1c 6.3 % (4.5-5.6) H 09/28/22 07:16 Osmolality 269 mOsm/kg (280-300) L 09/27/22 15:37 Calcium 6.8 mg/dl (8.5-10.1) L 09/28/22 07:16 Phosphorus 6.2 mg/dl (2.5-4.9) H 09/28/22 07:16 Magnesium 1.9 mg/dl (1.7-2.4) 09/28/22 07:16 Total Bilirubin 0.4 mg/dl (0.2-1.0) 09/27/22 15:37 AST 13 U/L (13-39) 09/27/22 15:37 ALT 14 U/L (7-52) 09/27/22 15:37 Alkaline Phosphatase 238 U/L (34-104) H 09/27/22 15:37 B-Natriuretic Peptide 558 pg/ml (0-100) H 09/27/22 15:37 Total Protein 5.9 gm/dl (6.0-8.3) L 09/27/22 15:37 Albumin 3.2 gm/dl (3.4-5.0) L 09/27/22 15:37 Globulin 2.7 gm/dl (2.5-4.0) 09/27/22 15:37 Albumin/Globulin Ratio 1.2 (0.9-2) 09/27/22 15:37 TSH 5.331 uIu/ml (0.300-4.500) H 09/27/22 15:37 Free T4 0.74 ng/dl (0.61-1.60) 09/27/22 15:37 Urine Color Yellow 09/27/22 19:00 Urine Appearance Clear (Clear) 09/27/22 19:00 Urine pH 7.0 (4.5-7.5) 09/27/22 19:00 Ur Specific [place] 1.006 (1.000-1.030) 09/27/22 19:00 Urine Protein 2+ (Negative) H 09/27/22 19:00 Urine Glucose (UA) Trace (Negative) H 09/27/22 19:00 Urine Ketones Negative (Negative) 09/27/22 19:00 Urine Blood 1+ (Negative) H 09/27/22 19:00 Urine Nitrite Positive (Negative) A 09/27/22 19:00 Urine Bilirubin Negative (Negative) 09/27/22 19:00 Urine Urobilinogen Negative (Negative) 09/27/22 19:00 Ur Leukocyte Esterase Trace (Negative) H 09/27/22 19:00 Urine WBC (Auto) 1-5 /hpf (0-5) 09/27/22 19:00 Urine RBC (Auto) 0-4 /hpf (0-4) 09/27/22 19:00 U Hyaline Cast (Auto) 0 /lpf (0-5) 09/27/22 19:00 U Epithel Cells (Auto) 0-5 /lpf (0-5) 09/27/22 19:00 Urine Bacteria (Auto) 1+ (Negative) H 09/27/22 19:00 Urine Osmolality 146 mOsm/kg (500-800) L 09/27/22 19:00 Ur Random Creatinine 9.6 mg/dl 09/27/22 19:00 Ur Random Creatinine 9.7 mg/dl 09/27/22 19:00 U Random Total Protein 139.8 mg/dl (0-11.9) H 09/27/22 19:00 Ur Random Sodium 36 mmol/L 09/27/22 19:00 Protein/Creatinin Ratio 14.4 (0-0.2) H 09/27/22 19:00 SARS-CoV-2, RNA, NAAT NEGATIVE (NEGATIVE) 09/27/22 17:50 Impressions Chest X-Ray 09/27/22 15:56 XR chest 1V portable CLINICAL HISTORY: Weakness. Shortness of breath. COMPARISON STUDY: No previous studies for comparison. FINDINGS: There is no pneumothorax. Blunting of the right costophrenic angle suggests a trace right pleural effusion. Suspected trace left pleural effusion. Moderate enlargement of the cardiac silhouette is noted. There is pulmonary vascular congestion with possible mild pulmonary edema. No consolidation is identified to suggest pneumonia. IMPRESSION: 1. Cardiomegaly. Pulmonary vascular congestion with possible mild pulmonary edema. 2. Trace bilateral pleural effusions. ACT 112: Negative or not required by law. Electronically signed by: Hamilton Alexander M.D. 09/27/2022 4:35 PM Medications Administered Current Inpatient Medications Acetaminophen (Acetaminophen 325 Mg Tab) 650 mg PO Q4H PRN PRN Reason: Pain or Fever Stop: 10/27/22 16:29 Last Admin: 09/27/22 19:24 Dose: 650 mg Albuterol (Albuterol Hfa 8 Gm Inhaler) 2 puffs INH Q4R PRN PRN Reason: Shortness Of Breath Or Wheezing Stop: 10/27/22 18:10 Aspirin (Aspirin 81 Mg Ectab) 81 mg PO DAILY MARKUS Stop: 10/28/22 08:59 Last Admin: 09/28/22 08:34 Dose: 81 mg Atorvastatin Calcium (Atorvastatin 40 Mg Tab) 40 mg PO QAM MARKUS Stop: 10/28/22 08:59 Last Admin: 09/28/22 08:35 Dose: 40 mg Dextrose (Dextrose 50% 50 Ml Syringe) 25 - 50 ml IV UD PRN; Protocol PRN Reason: Hypoglycemia Protocol Stop: 10/27/22 16:29 Dextrose (Dextrose 50% 50 Ml Syringe) 25 - 50 ml IV UD PRN; Protocol PRN Reason: Hypoglycemia Protocol Stop: 10/27/22 19:29 Fluticasone/Vilanterol (Fluticasone/Vilanterol 100/25mcg 14 Puffs/Inhaler) 1 puffs INH DAILY MARKUS Stop: 10/28/22 08:59 Last Admin: 09/28/22 08:35 Dose: 1 puffs Furosemide (Furosemide 40 Mg/4 Ml Vial) 80 mg IV TIDM MARKUS Stop: 10/28/22 11:59 Glucagon (Glucagon For Inj 1 Mg Vial) 1 mg SQ UD PRN; Protocol PRN Reason: Hypoglycemia Protocol Stop: 10/27/22 16:29 Glucagon (Glucagon For Inj 1 Mg Vial) 1 mg IM UD PRN; Protocol PRN Reason: Hypoglycemia Protocol Stop: 10/27/22 19:29 Glucose (Glucose 40% Gel 15 Gm Tube) 15 - 30 gm PO UD PRN; Protocol PRN Reason: Hypoglycemia Protocol Stop: 10/27/22 16:29 Glucose (Glucose 10 Tab/Tube) 4 - 8 tab PO UD PRN; Protocol PRN Reason: Hypoglycemia Treatment Stop: 10/27/22 16:29 Glucose (Glucose 40% Gel 15 Gm Tube) 15 - 30 gm PO UD PRN; Protocol PRN Reason: Hypoglycemia Protocol Stop: 10/27/22 19:29 Glucose (Glucose 10 Tab/Tube) 4 - 8 tab PO UD PRN; Protocol PRN Reason: Hypoglycemia Protocol Stop: 10/27/22 19:29 Last Admin: 09/28/22 03:47 Dose: 4 tab Insulin Aspart (Insulin Aspart Per Unit) 0 units SC ACHS MARKUS Stop: 10/27/22 20:59 Last Admin: 09/28/22 08:00 Dose: Not Given Miscellaneous (Carbohydrates For Hypoglycemia ) 15 - 30 gm PO UD PRN PRN Reason: Hypoglycemia Protocol Stop: 10/27/22 16:29 Last Admin: 09/28/22 03:20 Dose: 15 gm Miscellaneous (Carbohydrates For Hypoglycemia ) 15 - 30 gm PO UD PRN PRN Reason: Hypoglycemia Treatment Stop: 10/27/22 19:29 Miscellaneous (Remove Nicoderm Patch) 1 each N/A Q24H [facility] Stop: 10/28/22 19:58 Miscellaneous Information (Pharmacy Glycemic Mgmt Consult) 1 each N/A UD PRN PRN Reason: Consult Stop: 10/27/22 16:29 Nicotine (Nicotine 21 Mg/24 Hr Tdsy) 21 mg TD Q24H [facility] Stop: 10/27/22 19:59 Last Admin: 09/27/22 20:25 Dose: Not Given Polyethylene Glycol (Polyethylene (Miralax) 17 Gm Pack) 17 gm PO DAILY PRN PRN Reason: Constipation Stop: 10/27/22 16:29 Pregabalin (Pregabalin 25 Mg Cap) 25 mg PO BID [facility] Stop: 10/27/22 20:59 Last Admin: 09/28/22 08:38 Dose: 25 mg Umeclidinium [place] (Umeclidinium [place] 62.5mcg/Blister 7 Puffs/Inhaler) 1 puffs INH QAM [facility] Stop: 10/28/22 08:59 Last Admin: 09/28/22 08:35 Dose: 1 puffs
--- NOTE | 2022-09-28 13:27 | Pharmacy Report ---
Pharmacy Glycemic Short Note 2 - Date of Service September 28, 2022 - Glycemic Short BSG Results (Last 24 hours): 09/27/22 09/27/22 09/27/22 15:37 19:20 20:13 Glucose 136 H 96 POC Glucose 90 09/28/22 09/28/22 09/28/22 00:26 03:15 03:32 Glucose 67 L POC Glucose 65 L* 76 09/28/22 09/28/22 09/28/22 04:05 06:18 07:10 Glucose POC Glucose 110 H 91 207 H 09/28/22 09/28/22 09/28/22 07:16 08:23 11:23 Glucose 95 POC Glucose 93 112 H OUTPATIENT ANTIDIABETIC REGIMEN: * Toujeo 16 units SC HS * Trulicity SC weekly (Wednesdays) HbA1c: 6.3% (09/28/22) ASSESSMENT: * DW is a 56 year old female who presented 09/27/22 with weakness and bilateral leg swelling * Pertinent PMH includes acute on chronic hyponatremia, HFpEF, HTN, T2DM, and CKD * BSGs have been very well-controlled without any insulin * Outlier BSG this morning of 207 mg/dL, inclined to believe this is inaccurate given discrepancy with glucose on BMP and subsequent POC of 95 and 93 mg/dL respectively * Will hold off on basal insulin at this time and utilize loose Novolog parameters only PLAN FOR INPATIENT GLYCEMIC CONTROL: * Basal insulin * hold * Bolus insulin * NovoLog per scale ACHS or Q6hrs while NPO * Goal Range: Low 120 mg/dL - High 150 mg/dL * Correction Factor: 35 mg/dL/unit * Nutritional / Prandial insulin per carb ratio of 1 unit per 12 grams CHO consumed
[2022-09-28 18:21] LABS: BUN Creatinine Ratio 20.3 (10-20); Calcium 6.7 mg/dl (8.5-10.1); Creatinine Clr Calc Pharmacy 22.6 ml/min; Est GFR (African American) 19.1 ml/min; Est GFR (Non-African American) 16.4 ml/min; Potassium 4.7 mmol/L (3.5-5.1)
[2022-09-28] MEDS: NICOTINE 21 MG/24 HR TDSY TD SCH (21:22)
[2022-09-29] MEDS: ACETAMINOPHEN 325 MG TAB PO PRN (04:52)
[2022-09-29 07:31] LABS: Hemoglobin 7.8 g/dl (12.0-16.0); Mean Corpuscular Hemoglobin 30.7 pg (25.0-34.0); Mean Corpuscular Hgb Conc 33.9 g/dL (32.0-36.0); Mean Corpuscular Volume 90.6 fL (80.0-100.0); Mean Platelet Volume 9.7 fL (9.4-12.3); Platelet Count 124 K/uL (130-400); RDW Coefficient of Variation 12.4 % (11.5-14.5); RDW Standard Deviation 41.1 fL (36.4-46.3); Red Blood Count 2.54 M/uL (3.93-5.22); White Blood Count 5.08 K/ul (4.8-10.8)
[2022-09-29 07:54] LABS: Magnesium 1.9 mg/dl (1.7-2.4); Phosphorus 6.2 mg/dl (2.5-4.9)
[2022-09-29] MEDS ORDERED: STAT IV STA (07:57)
[2022-09-29] MEDS ORDERED: CALCIUM GLUCONATE 10% 1,000 MG in DEXTROSE 5% 50 ML IV ONE (08:15)
[2022-09-29] MEDS: ATORVASTATIN 40 MG TAB PO SCH (08:48)
[2022-09-29] MEDS: ASPIRIN 81 MG ECTAB PO SCH (08:48)
[2022-09-29] MEDS: FLUTICASONE/VILANTEROL 100/25MCG 14 PUFFS/INHALER INH SCH (08:48)
[2022-09-29] MEDS: UMECLIDINIUM BROMIDE 62.5MCG/BLISTER 7 PUFFS/INHALER INH SCH (08:49)
[2022-09-29] MEDS: FUROSEMIDE 40 MG/4 ML VIAL IV SCH ×3 (08:49→17:10)
[2022-09-29] MEDS: INSULIN ASPART PER UNIT SC SCH ×4 (08:54→20:18)
[2022-09-29] MEDS: PREGABALIN 25 MG CAP PO SCH ×2 (08:54→20:19)
--- NOTE | 2022-09-29 10:40 | Nephrology Progress Note ---
Date of Service September 29, 2022 Assessment & Plan (1) Hyponatremia: Plan: Patient with hypervolemic hyponatremia. Sodium 122 yesterday. She does not have mental status changes. She however remains fluid overload. Sodium level today is pending -Fluid restriction of 1.2 L daily -Continue Lasix to 80 mg IV 3 times daily -Monitor input output and daily standing weight if able (2) CKD (chronic kidney disease): Plan: Patient with CKD stage IV due to diabetic nephropathy. Patient admitted with volume overload and hyponatremia. Will attempt aggressive diuresis. Patient is close to needing dialysis particularly if she fails diuresis. -Monitor renal function daily BMP -Avoid nephrotoxins such as contrast and renally dose medication for current GFR. Admission and Anticipated Discharge Date Admission Date: September 27, 2022 Subjective Seen for hyponatremia. Patient still complaining of leg swelling. No shortness of breath. Review of Systems Review of Systems: All other systems were reviewed and negative except as noted in HPI Physical Exam Physical Exam: General exam: Appears comfortable, no acute distress HEENT: Pupils are equal and reactive to light Neck: No JVD, neck is supple trachea is midline Respiratory system: Clear breath sounds bilaterally. Gastrointestinal: Abdomen is soft, non distended, non tender, bowel sounds are present CVS: Regular rate and rhythm. No murmurs, rubs or gallops Musculoskeletal: No joint or muscle tenderness Extremities: Non tender, 1+ edema, peripheral pulses are present Neuro: Oriented, no tremors, no focal neurological deficits Skin: No rashes Results & Data ([facility]) Vital Signs (Past 12 Hours) Vital Signs Temp Pulse Pulse Resp BP BP Pulse Ox 09/29/22 08:45 09/29/22 07:37 36.8 C 68 18 147/54 H 92 09/29/22 06:03 70 09/29/22 02:49 36.7 C 68 20 128/62 98 09/29/22 00:01 64 09/28/22 23:07 36.8 C 66 17 125/67 96 O2 Del Method O2 Flow Rate 09/29/22 08:45 Room Air 09/29/22 07:37 Nasal Cannula 1 09/29/22 06:03 09/29/22 02:49 Nasal Cannula 1 09/29/22 00:01 09/28/22 23:07 Nasal Cannula 1 Laboratory Results 09/29/22 09/29/22 07:16 07:16 WBC 5.08 RBC 2.54 L MCV 90.6 MCH 30.7 MCHC 33.9 RDW Std Deviation 41.1 RDW Coeff of Miguelangel 12.4 Plt Count 124 L MPV 9.7 Phosphorus 6.2 H
[2022-09-29 10:52] LABS: BUN Creatinine Ratio 20.5 (10-20); Calcium 7.4 mg/dl (8.5-10.1); Creatinine Clr Calc Pharmacy 21.8 ml/min; Est GFR (African American) 18.2 ml/min; Est GFR (Non-African American) 15.7 ml/min; Potassium 4.1 mmol/L (3.5-5.1)
--- NOTE | 2022-09-29 12:37 | Hospitalist Progress Note ---
Date of Service September 29, 2022 Assessment & Plan (1) Hyponatremia: Plan: Acute on chronic hyponatremia Volume overload-POA In advancing CKD and nephrotic syndrome CKD IV due to diabetic nephropathy Continue IV Lasix 80 mg 3 times daily Continue fluid restriction 1.2 L/day Monitor sodium levels: 124 today Appreciate nephrology input (2) (HFpEF) heart failure with preserved ejection fraction: Plan: - Less likely in exacerbation - LE edema likely from nephrotic syndrome, CKD IV -CXR:Cardiomegaly. Pulmonary vascular congestion with possible mild pulmonary edema. Trace bilateral pleural effusions. - continue home medications --Diuresis as above (3) HTN (hypertension): Plan: - continue home meds (4) DM2 (diabetes mellitus, type 2): Plan: - A1c 6.3% - FSG AC+HS - continue home insulin - pharmacy glycemic consult placed - diabetic diet (5) HLD (hyperlipidemia): Plan: - continue statin (6) CKD (chronic kidney disease): Plan: - progressive kidney disease -- Follows with nephrology as outpatient - discussion of dialysis has been ongoing - monitor Cr - avoid nephrotoxic meds as able (7) Anemia: Plan: - anemia of chronic disease, CKD - no signs of bleeding - Baseline Hb 9-10 -Monitor CBC (8) COPD (chronic obstructive pulmonary disease): Plan: - No signs of exacerbation - continue home inhalers Hypocalcemia Check Vit D levels Replace Calcium as needed Monitor Plan DVT px: Heparin SQ Code Status: Full Code Disposition PT/OT prior to discharge Admission and Anticipated Discharge Date Admission Date: September 27, 2022 Subjective Patient is seen and examined at bedside Leg swelling slowly improving Denies any chest pain, shortness of breath, dizziness, nausea, abdominal pain Offers no other complaints Sodium levels 124 today Review of Systems Review of Systems: All systems reviewed & are unremarkable except as noted in Subjective Physical Exam Physical Exam: Physical Exam: Vitals signs as noted above General Appearance:Morbidly Obese, no apparent distress Head: normocephalic, Atraumatic Eyes: normal inspection, EOMI Neck: supple, Trachea midline Respiratory/Chest: Decrease breath sounds, CTA, No accessory muscle use Cardiovascular: S1, S2, + murmur Abdomen/GI:Soft, Non tender, Bowel sounds present Extremities/Musculoskeletal:normal inspection, 1-2+ B/L LE edema Neurologic/Psych:AAOX3, grossly no focal neurological deficits Skin: normal color, warm Results & Data Results & Data ([facility]) Vital Signs (Past 12 Hours) Vital Signs Temp Pulse Pulse Resp BP BP Pulse Ox 09/29/22 11:55 36.7 C 67 20 182/70 H 94 09/29/22 08:45 09/29/22 07:37 36.8 C 68 18 147/54 H 92 09/29/22 06:03 70 09/29/22 02:49 36.7 C 68 20 128/62 98 O2 Del Method O2 Flow Rate 09/29/22 11:55 Room Air 09/29/22 08:45 Room Air 09/29/22 07:37 Nasal Cannula 1 09/29/22 06:03 09/29/22 02:49 Nasal Cannula 1 Laboratory Results Short CBC 09/29/22 Range/Units 07:16 WBC 5.08 (4.8-10.8) K/ul Hgb 7.8 L (12.0-16.0) g/dl Hct 23.0 L (34.1-44.9) % Plt Count 124 L (130-400) K/uL BMP 09/28/22 09/29/22 17:42 10:16 Sodium 122 L 124 L Potassium 4.7 4.1 Chloride 91 L 92 L Carbon Dioxide 22 25 BUN 61 H 64 H Creatinine 3.00 H 3.12 H Glucose 112 H 102 H Calcium 6.7 L 7.4 L
[2022-09-29] MEDS: NICOTINE 21 MG/24 HR TDSY TD SCH (20:20)
[2022-09-29] MEDS: HEPARIN SOD 5,000 UNIT/0.5 ML VIAL SQ SCH (21:59)
[2022-09-30 08:03] LABS: Hemoglobin 8.1 g/dl (12.0-16.0); Mean Corpuscular Hemoglobin 30.5 pg (25.0-34.0); Mean Corpuscular Hgb Conc 33.8 g/dL (32.0-36.0); Mean Corpuscular Volume 90.2 fL (80.0-100.0); Mean Platelet Volume 10.1 fL (9.4-12.3); Platelet Count 159 K/uL (130-400); RDW Coefficient of Variation 12.4 % (11.5-14.5); RDW Standard Deviation 40.8 fL (36.4-46.3); Red Blood Count 2.66 M/uL (3.93-5.22); White Blood Count 4.57 K/ul (4.8-10.8)
[2022-09-30] MEDS: ASPIRIN 81 MG ECTAB PO SCH (08:13)
[2022-09-30] MEDS: UMECLIDINIUM BROMIDE 62.5MCG/BLISTER 7 PUFFS/INHALER INH SCH (08:14)
[2022-09-30] MEDS: ATORVASTATIN 40 MG TAB PO SCH (08:14)
[2022-09-30] MEDS: FLUTICASONE/VILANTEROL 100/25MCG 14 PUFFS/INHALER INH SCH (08:14)
[2022-09-30] MEDS: INSULIN ASPART PER UNIT SC SCH ×4 (08:19→20:33)
[2022-09-30] MEDS: FUROSEMIDE 40 MG/4 ML VIAL IV SCH ×3 (08:19→16:51)
[2022-09-30] MEDS: PREGABALIN 25 MG CAP PO SCH ×2 (08:20→20:37)
[2022-09-30 08:33] LABS: BUN Creatinine Ratio 18.6 (10-20); Calcium 7.2 mg/dl (8.5-10.1); Creatinine Clr Calc Pharmacy 19.4 ml/min; Est GFR (African American) 16.7 ml/min; Est GFR (Non-African American) 14.4 ml/min; Potassium 4.1 mmol/L (3.5-5.1)
--- NOTE | 2022-09-30 08:46 | Nephrology Progress Note ---
Date of Service September 30, 2022 Assessment & Plan (1) Hyponatremia: Plan: hypervolemic hyponatremia. Sodium 124 yesterday>129 today, acceptable rate of change. She does not have mental status changes. She however remains fluid overload. 6.2L negative past 24 hrs -Fluid restriction of 1.2 L daily -Continue Lasix to 80 mg IV 3 times daily -Monitor input output and daily standing weight if able (2) CKD (chronic kidney disease): Plan: Patient with CKD stage IV due to diabetic nephropathy. Patient admitted with volume overload and hyponatremia. Will attempt aggressive diuresis. Patient is close to needing dialysis particularly if she fails diuresis. baseline creatinine 2.7-3.1. -Monitor renal function daily BMP -Avoid nephrotoxins such as contrast and renally dose medication for current GFR. Admission and Anticipated Discharge Date Admission Date: September 27, 2022 Subjective no acute interval clinical event except 6+ L negative on day. edema gone she states Review of Systems Review of Systems: All systems reviewed & are unremarkable except as noted in Subjective Physical Exam Constitutional: well developed and well nourished Eyes: EOM intact bilaterally ENMT: Ears: no external ear abnormality Nose: no external nose abnormality Mouth: + dry oral mucous membranes Neck: no nuchal rigidity Respiratory: normal respiratory effort Auscultation: + diminished lung sounds and + crackles (fine bibasilar) Cardiovascular: Rate/Rhythm: regular rate and regular rhythm Extremities: no edema Gastrointestinal (Abdomen): Inspection/Auscultation: normal bowel sounds Percussion/Palpation: abdomen soft; abdomen nontender Musculoskeletal: Extremities: strength 5/5 throughout Skin: no rashes, warm and dry Neurologic: perez, fluent speech, no tremor Results & Data ([facility]) Vital Signs (Past 12 Hours) Vital Signs Temp Pulse Pulse Resp BP Pulse Ox O2 Del Method 09/30/22 07:29 36.8 C 63 18 138/63 97 Nasal Cannula 09/30/22 03:14 36.7 C 72 18 128/65 96 Nasal Cannula 09/29/22 23:44 36.6 C 79 18 146/72 H 100 Nasal Cannula 09/29/22 22:52 77 O2 Flow Rate 09/30/22 07:29 2 09/30/22 03:14 2 09/29/22 23:44 2 09/29/22 22:52 Laboratory Results 09/30/22 06:37 12/12/22 06:37
[2022-09-30] MEDS ORDERED: STAT IV STA (09:06)
[2022-09-30] MEDS ORDERED: CALCIUM GLUCONATE 10% 1,000 MG in DEXTROSE 5% 50 ML IV ONE (09:15)
[2022-09-30] MEDS: CHOLECALCIFEROL 1,000 UNITS 25 MCG TAB PO SCH (10:03)
[2022-09-30] MEDS: HEPARIN SOD 5,000 UNIT/0.5 ML VIAL SQ SCH ×2 (10:41→20:37)
--- NOTE | 2022-09-30 13:07 | Hospitalist Progress Note ---
Date of Service September 30, 2022 Assessment & Plan (1) Hyponatremia: Plan: Acute on chronic hyponatremia Volume overload-POA In advancing CKD and nephrotic syndrome CKD IV due to diabetic nephropathy Continue IV Lasix 80 mg 3 times daily Continue fluid restriction 1.2 L/day Monitor sodium levels: 129 today Appreciate nephrology input Needs follow up with Nephrology upon discharge (2) (HFpEF) heart failure with preserved ejection fraction: Plan: - Less likely in exacerbation - LE edema likely from nephrotic syndrome, CKD IV -CXR:Cardiomegaly. Pulmonary vascular congestion with possible mild pulmonary edema. Trace bilateral pleural effusions. - continue home medications --Diuresis as above (3) HTN (hypertension): Plan: - continue home meds (4) DM2 (diabetes mellitus, type 2): Plan: - A1c 6.3% - FSG AC+HS - continue home insulin - pharmacy glycemic consult placed - diabetic diet (5) HLD (hyperlipidemia): Plan: - continue statin (6) CKD (chronic kidney disease): Plan: - progressive kidney disease -- Follows with nephrology as outpatient - discussion of dialysis has been ongoing - monitor Cr 3.3 today - avoid nephrotoxic meds as able (7) Anemia: Plan: - anemia of chronic disease, CKD - no signs of bleeding - Baseline Hb 9-10 -Monitor CBC (8) COPD (chronic obstructive pulmonary disease): Plan: - No signs of exacerbation - continue home inhalers Hypocalcemia Vit D deficiency Vit D levels:15.6 Replace Calcium as needed Started on Vit D supplements Monitor Plan DVT px: Heparin SQ Code Status: Full Code Disposition PT/OT prior to discharge Admission and Anticipated Discharge Date Admission Date: September 27, 2022 Subjective Patient is seen and examined at bedside Offers no complaints Discussed with Nephrology today Leg swelling improving Denies any chest pain, shortness of breath, dizziness, nausea, abdominal pain Sodium levels 129 today Eager to get discharged Review of Systems Review of Systems: All systems reviewed & are unremarkable except as noted in Subjective Physical Exam Physical Exam: Physical Exam: Vitals signs as noted above General Appearance:Morbidly Obese, no apparent distress Head: normocephalic, Atraumatic Eyes: normal inspection, EOMI Neck: supple, Trachea midline Respiratory/Chest: Decrease breath sounds, CTA, No accessory muscle use Cardiovascular: S1, S2, + murmur Abdomen/GI:Soft, Non tender, Bowel sounds present Extremities/Musculoskeletal:normal inspection, 1-2+ B/L LE edema Neurologic/Psych:AAOX3, grossly no focal neurological deficits Skin: normal color, warm Results & Data Results & Data ([facility]) Vital Signs (Past 12 Hours) Vital Signs Temp Pulse Resp BP Pulse Ox O2 Del Method O2 Flow Rate 09/30/22 12:00 36.5 C 72 18 165/71 H 95 Room Air 09/30/22 07:29 36.8 C 63 18 138/63 97 Nasal Cannula 2 09/30/22 03:14 36.7 C 72 18 128/65 96 Nasal Cannula 2 Laboratory Results Short CBC 09/30/22 Range/Units 06:37 WBC 4.57 L (4.8-10.8) K/ul Hgb 8.1 L (12.0-16.0) g/dl Hct 24.0 L (34.1-44.9) % Plt Count 159 (130-400) K/uL BMP 09/30/22 06:37 Sodium 129 L Potassium 4.1 Chloride 96 L Carbon Dioxide 26 BUN 62 H Creatinine 3.34 H Glucose 79 Calcium 7.2 L
[2022-09-30] MEDS: NICOTINE 21 MG/24 HR TDSY TD SCH (20:36)
[2022-10-01 07:26] LABS: Calcium 7.3 mg/dl (8.5-10.1); Creatinine Clr Calc Pharmacy 17.8 ml/min; Est GFR (African American) 15.5 ml/min; Est GFR (Non-African American) 13.4 ml/min; Magnesium 2.1 mg/dl (1.7-2.4); Phosphorus 5.7 mg/dl (2.5-4.9); Potassium 4.3 mmol/L (3.5-5.1)
[2022-10-01] MEDS: FUROSEMIDE 40 MG/4 ML VIAL IV SCH ×2 (07:59→11:38)
[2022-10-01] MEDS: FLUTICASONE/VILANTEROL 100/25MCG 14 PUFFS/INHALER INH SCH (07:59)
[2022-10-01] MEDS: HEPARIN SOD 5,000 UNIT/0.5 ML VIAL SQ SCH ×2 (07:59→20:50)
[2022-10-01] MEDS: UMECLIDINIUM BROMIDE 62.5MCG/BLISTER 7 PUFFS/INHALER INH SCH (07:59)
[2022-10-01] MEDS: ATORVASTATIN 40 MG TAB PO SCH (08:00)
[2022-10-01] MEDS: CHOLECALCIFEROL 1,000 UNITS 25 MCG TAB PO SCH (08:00)
[2022-10-01] MEDS: ASPIRIN 81 MG ECTAB PO SCH (08:01)
[2022-10-01] MEDS: PREGABALIN 25 MG CAP PO SCH ×2 (08:06→20:50)
[2022-10-01] MEDS: INSULIN ASPART PER UNIT SC SCH ×4 (08:06→20:33)
[2022-10-01 08:07] LABS: Urea Nitrogen, Random Urine 133 mg/dL
--- NOTE | 2022-10-01 13:55 | Pharmacy Report ---
Pharmacy Glycemic Short Note 2 - Date of Service October 01, 2022 - Glycemic Short BSG Results (Last 24 hours): 09/30/22 09/30/22 10/01/22 16:15 19:53 06:11 Glucose 127 H POC Glucose 138 H 155 H 10/01/22 10/01/22 07:20 11:42 Glucose POC Glucose 135 H 160 H OUTPATIENT ANTIDIABETIC REGIMEN: * Toujeo 16 units SC HS * Trulicity SC weekly (Wednesdays) * HbA1c: 6.3% (09/28/22) ASSESSMENT: 10/01/22: * Ms Mclain has continued to require very little insulin the past several days (less than 10 units per day). * Fasting BSG is beginning to trend up. Will consider adding a small dose of basal insulin tomorrow morning if this trend continues. * Now that patient appears to be eating a bit more, may need to tighten Novolog parameters slightly. 09/28 * DW is a 56 year old female who presented 09/27/22 with weakness and bilateral leg swelling * Pertinent PMH includes acute on chronic hyponatremia, HFpEF, HTN, T2DM, and CKD * BSGs have been very well-controlled without any insulin * Outlier BSG this morning of 207 mg/dL, inclined to believe this is inaccurate given discrepancy with glucose on BMP and subsequent POC of 95 and 93 mg/dL respectively * Will hold off on basal insulin at this time and utilize loose Novolog parameters only PLAN FOR INPATIENT GLYCEMIC CONTROL: * Basal insulin * hold -- reassess daily * Bolus insulin * NovoLog per scale ACHS or Q6hrs while NPO * Goal Range: Low 120 mg/dL - High 150 mg/dL * Correction Factor: 45 mg/dL/unit * Nutritional / Prandial insulin per carb ratio of 1 unit per 15 grams CHO consumed
--- NOTE | 2022-10-01 15:21 | Hospitalist Progress Note ---
Date of Service October 01, 2022 Assessment & Plan (1) Hyponatremia: Plan: Acute on chronic hyponatremia Volume overload-POA In advancing CKD and nephrotic syndrome CKD IV due to diabetic nephropathy Continue IV Lasix decreased to 80 mg 2 times daily Continue fluid restriction 1.2 L/day Monitor sodium levels: 132 today Appreciate nephrology input Needs follow up with Nephrology upon discharge Continue IV diuresis (2) (HFpEF) heart failure with preserved ejection fraction: Plan: - Less likely in exacerbation - LE edema likely from nephrotic syndrome, CKD IV -CXR:Cardiomegaly. Pulmonary vascular congestion with possible mild pulmonary edema. Trace bilateral pleural effusions. - continue home medications --Diuresis as above (3) HTN (hypertension): Plan: - continue home meds (4) DM2 (diabetes mellitus, type 2): Plan: - A1c 6.3% - FSG AC+HS - continue home insulin - pharmacy glycemic consult placed - diabetic diet (5) HLD (hyperlipidemia): Plan: - continue statin (6) CKD (chronic kidney disease): Plan: - progressive kidney disease CAMILLA on CKD IV -- Follows with nephrology as outpatient - discussion of dialysis has been ongoing - monitor Cr 3.56 today - avoid nephrotoxic meds as able Monitor renal function (7) Anemia: Plan: - anemia of chronic disease, CKD - no signs of bleeding - Baseline Hb 9-10 -Monitor CBC (8) COPD (chronic obstructive pulmonary disease): Plan: - No signs of exacerbation - continue home inhalers Hypocalcemia Vit D deficiency Vit D levels:15.6 Replace Calcium as needed Continue Vit D supplements Monitor Plan DVT px: Heparin SQ Code Status: Full Code Disposition PT/OT prior to discharge Admission and Anticipated Discharge Date Admission Date: September 27, 2022 Subjective Patient is seen and examined at bedside Eager to get discharged Leg swelling improving Discussed with Nephrology today Denies any chest pain, shortness of breath, dizziness, nausea, abdominal pain Sodium levels improved to 132 today CR slowly rising Review of Systems Review of Systems: All systems reviewed & are unremarkable except as noted in Subjective Physical Exam Physical Exam: Physical Exam: Vitals signs as noted above General Appearance:Morbidly Obese, no apparent distress Head: normocephalic, Atraumatic Eyes: normal inspection, EOMI Neck: supple, Trachea midline Respiratory/Chest: Decrease breath sounds, CTA, No accessory muscle use Cardiovascular: S1, S2, + murmur Abdomen/GI:Soft, Non tender, Bowel sounds present Extremities/Musculoskeletal:normal inspection, 1-2+ B/L LE edema Neurologic/Psych:AAOX3, grossly no focal neurological deficits Skin: normal color, warm Results & Data Results & Data ([facility]) Vital Signs (Past 12 Hours) Vital Signs Temp Pulse Resp BP Pulse Ox O2 Del Method 10/01/22 11:45 36.4 C L 69 16 157/76 H 96 Room Air 10/01/22 07:23 36.7 C 79 18 158/68 H 91 Room Air 10/01/22 03:42 36.9 C 80 18 129/72 90 Room Air Laboratory Results [facility] 10/01/22 06:11 Sodium 132 L Potassium 4.3 Chloride 98 Carbon Dioxide 27 BUN 64 H Creatinine 3.56 H Glucose 127 H Calcium 7.3 L
--- NOTE | 2022-10-01 19:22 | Nephrology Progress Note ---
Date of Service September 30, 2022 Assessment & Plan (1) Hyponatremia: Plan: hypervolemic hyponatremia. Sodium 124 yesterday>129 >132 today, acceptable rate of change. She does not have mental status changes. She however remains fluid overload. 3.8L negative past 24 hrs -Fluid restriction of 1.2 L daily -Continue Lasix to 80 mg IV 3 times daily > lower to bid; consider holding depending on AM results >>notably not on po diuretics as OP but will need them -Monitor input output and daily standing weight if able (2) CKD (chronic kidney disease): Plan: Patient with CKD stage IV due to diabetic nephropathy. Patient admitted with volume overload and hyponatremia. Will attempt aggressive diuresis. Patient is close to needing dialysis particularly if she fails diuresis. baseline creatinine 2.7-3.1. -Monitor renal function daily BMP -Avoid nephrotoxins such as contrast and renally dose medication for current GFR. Admission and Anticipated Discharge Date Admission Date: September 27, 2022 Subjective seen on rounds about 1215. anxious for d/c. dyspnea, edema improved she states Review of Systems Review of Systems: All systems reviewed & are unremarkable except as noted in Subjective Physical Exam Constitutional: well developed and well nourished Eyes: EOM intact bilaterally ENMT: Ears: no external ear abnormality Nose: no external nose abnormality Mouth: + dry oral mucous membranes Neck: no nuchal rigidity Respiratory: normal respiratory effort Auscultation: + diminished lung so unds and + crackles (fine bibasilar) Cardiovascular: Rate/Rhythm: regular rate and regular rhythm Extremities: + edema (2+pedal dependent ) Gastrointestinal (Abdomen): Inspection/Auscultation: normal bowel sounds Percussion/Palpation: abdomen soft; abdomen nontender Musculoskeletal: Extremities: strength 5/5 throughout Skin: no rashes, warm and dry Results & Data ([facility]) Vital Signs (Past 12 Hours) Vital Signs Temp Pulse Resp BP BP Pulse Ox O2 Del Method 09/30/22 15:39 36.5 C 83 18 158/62 H 95 Room Air 09/30/22 12:00 36.5 C 72 18 165/71 H 95 Room Air 09/30/22 07:29 36.8 C 63 18 138/63 97 Nasal Cannula O2 Flow Rate 09/30/22 15:39 09/30/22 12:00 09/30/22 07:29 2 Laboratory Results 09/30/22 06:37 10/01/22 06:11
[2022-10-01] MEDS: NICOTINE 21 MG/24 HR TDSY TD SCH (20:50)
[2022-10-02 07:04] LABS: Hematocrit (blood only) 27.1 % (34.1-44.9); Hemoglobin 9.2 g/dl (12.0-16.0); Mean Corpuscular Hemoglobin 30.6 pg (25.0-34.0); Mean Corpuscular Hgb Conc 33.9 g/dL (32.0-36.0); Mean Platelet Volume 9.5 fL (9.4-12.3); Platelet Count 182 K/uL (130-400); RDW Coefficient of Variation 12.5 % (11.5-14.5); Red Blood Count 3.01 M/uL (3.93-5.22); White Blood Count 5.72 K/ul (4.8-10.8)
[2022-10-02 07:30] LABS: BUN Creatinine Ratio 20.1 (10-20); Est GFR (African American) 15.9 ml/min; Est GFR (Non-African American) 13.7 ml/min; Potassium 4.2 mmol/L (3.5-5.1)
[2022-10-02] MEDS: PREGABALIN 25 MG CAP PO SCH (08:43)
[2022-10-02] MEDS: INSULIN ASPART PER UNIT SC SCH ×2 (08:44→11:56)
[2022-10-02] MEDS: HEPARIN SOD 5,000 UNIT/0.5 ML VIAL SQ SCH (08:44)
[2022-10-02] MEDS: ATORVASTATIN 40 MG TAB PO SCH (08:45)
[2022-10-02] MEDS: CHOLECALCIFEROL 1,000 UNITS 25 MCG TAB PO SCH (08:45)
[2022-10-02] MEDS: ASPIRIN 81 MG ECTAB PO SCH (08:45)
[2022-10-02] MEDS: UMECLIDINIUM BROMIDE 62.5MCG/BLISTER 7 PUFFS/INHALER INH SCH (08:46)
[2022-10-02] MEDS: FLUTICASONE/VILANTEROL 100/25MCG 14 PUFFS/INHALER INH SCH (08:46)
[2022-10-02] MEDS ORDERED: LANTUS PER UNIT CHARGE SQ ONE (09:00)
[2022-10-02] MEDS ORDERED: FUROSEMIDE 40 MG/4 ML VIAL IV SCH (09:00)
--- NOTE | 2022-10-02 11:35 | Hospitalist Progress Note ---
Date of Service October 02, 2022 Assessment & Plan (1) Hyponatremia: Plan: Acute on chronic hyponatremia Volume overload-POA In advancing CKD and nephrotic syndrome CKD IV due to diabetic nephropathy Continue IV Lasix decreased to 80 mg 2 times daily>> transition to torsemide 40 mg daily Continue fluid restriction 1.5 L/day upon discharge as well Low salt diet Monitor sodium levels: 135 today Appreciate nephrology input Needs follow up with Nephrology upon discharge Needs weekly BMP upon discharge (2) (HFpEF) heart failure with preserved ejection fraction: Plan: - Less likely in exacerbation - LE edema likely from nephrotic syndrome, CKD IV -CXR:Cardiomegaly. Pulmonary vascular congestion with possible mild pulmonary edema. Trace bilateral pleural effusions. - continue home medications --Diuresis as above (3) HTN (hypertension): Plan: - continue home meds (4) DM2 (diabetes mellitus, type 2): Plan: - A1c 6.3% - FSG AC+HS - continue home insulin - pharmacy glycemic consult placed - diabetic diet (5) HLD (hyperlipidemia): Plan: - continue statin (6) CKD (chronic kidney disease): Plan: - progressive kidney disease CAMILLA on CKD IV -- Follows with nephrology as outpatient - discussion of dialysis has been ongoing - monitor Cr 3.48 today - avoid nephrotoxic meds as able Monitor renal function (7) Anemia: Plan: - anemia of chronic disease, CKD - no signs of bleeding - Baseline Hb 9-10 -Monitor CBC (8) COPD (chronic obstructive pulmonary disease): Plan: - No signs of exacerbation - continue home inhalers Hypocalcemia Vit D deficiency Vit D levels:15.6 Replace Calcium as needed Continue Vit D supplements Monitor Plan DVT px: Heparin SQ Code Status: Full Code Disposition Home Admission and Anticipated Discharge Date Admission Date: September 27, 2022 Subjective Patient is seen and examined at bedside No new complaints Eager to get discharged Discussed with Nephrology today Denies any chest pain, shortness of breath, dizziness, nausea, abdominal pain Sodium levels improved to 135 today CR stable Plan to discharge home today Review of Systems Review of Systems: All systems reviewed & are unremarkable except as noted in Subjective Physical Exam Physical Exam: Physical Exam: Vitals signs as noted above General Appearance:Morbidly Obese, no apparent distress Head: normocephalic, Atraumatic Eyes: normal inspection, EOMI Neck: supple, Trachea midline Respiratory/Chest: Decrease breath sounds, CTA, No accessory muscle use Cardiovascular: S1, S2, + murmur Abdomen/GI:Soft, Non tender, Bowel sounds present Extremities/Musculoskeletal:normal inspection, 1-2+ B/L LE edema Neurologic/Psych:AAOX3, grossly no focal neurological deficits Skin: normal color, warm Results & Data Results & Data ([facility]) Vital Signs (Past 12 Hours) Vital Signs Temp Pulse Pulse Resp BP Pulse Ox O2 Del Method 10/02/22 11:21 36.5 C 87 18 134/79 97 Room Air 10/02/22 07:00 87 10/02/22 07:00 Room Air 10/02/22 07:00 36.4 C L 68 18 132/74 96 Room Air 10/02/22 03:14 36.3 C L 84 18 145/82 H 96 Room Air 10/02/22 00:17 84 10/01/22 23:46 36.4 C L 83 18 167/84 H 96 Room Air Laboratory Results Short CBC 10/02/22 Range/Units 06:52 WBC 5.72 (4.8-10.8) K/ul Hgb 9.2 L (12.0-16.0) g/dl Hct 27.1 L (34.1-44.9) % Plt Count 182 (130-400) K/uL BMP 10/02/22 06:52 Sodium 135 L Potassium 4.2 Chloride 100 Carbon Dioxide 26 BUN 70 H Creatinine 3.48 H Glucose 140 H Calcium 8.0 L
--- NOTE | 2022-10-02 11:52 | Pharmacy Report ---
Pharmacy Glycemic Short Note 2 - Date of Service October 02, 2022 - Glycemic Short BSG Results (Last 24 hours): 10/01/22 10/01/22 10/01/22 11:42 16:31 19:57 Glucose POC Glucose 160 H 159 H 190 H 10/02/22 10/02/22 10/02/22 06:52 07:36 11:30 Glucose 140 H POC Glucose 153 H 116 H OUTPATIENT ANTIDIABETIC REGIMEN: * Toujeo 16 units SC HS * Trulicity SC weekly (Wednesdays) * HbA1c: 6.3% (09/28/22) ASSESSMENT: 10/02/22: * AM fastings continue to uptrend; will add a low dose Lantus. 10/01/22: * Ms Mclain has continued to require very little insulin the past several days (less than 10 units per day). * Fasting BSG is beginning to trend up. Will consider adding a small dose of basal insulin tomorrow morning if this trend continues. * Now that patient appears to be eating a bit more, may need to tighten Novolog parameters slightly. 09/28 * DW is a 56 year old female who presented 09/27/22 with weakness and bilateral leg swelling * Pertinent PMH includes acute on chronic hyponatremia, HFpEF, HTN, T2DM, and CKD * BSGs have been very well-controlled without any insulin * Outlier BSG this morning of 207 mg/dL, inclined to believe this is inaccurate given discrepancy with glucose on BMP and subsequent POC of 95 and 93 mg/dL respectively * Will hold off on basal insulin at this time and utilize loose Novolog parameters only PLAN FOR INPATIENT GLYCEMIC CONTROL: * Basal insulin * Lantus 5 units SQ daily * Bolus insulin * NovoLog per scale ACHS or Q6hrs while NPO * Goal Range: Low 120 mg/dL - High 150 mg/dL * Correction Factor: 45 mg/dL/unit * Nutritional / Prandial insulin per carb ratio of 1 unit per 15 grams CHO consumed
--- NOTE | 2022-10-02 12:03 | Discharge Summary ---
Date of Service October 02, 2022 Admission HPI Per Admitting Provider The patient is a 56 year old woman with pmh HTN, HFpEF. CKDIV, COPD, DM2, neurogenic bladder with chronic indwelling villela who presents with 24 hours of leg swelling and found to have Na 119 on outpatient labs, sent in by nephrology. Patient denies complaints except some mild weakness in lower extremities. Reports increased swelling in lower extremities as well. Denies chest pain, shortness of breath, n/v/d, abdominal pain, cough, fever or chills, discomfort around villela catheter. Has not changed her diet or appetite recently and recently had her lasix increased to 160mg daily by car loader due to sodium le vels. Patient denies any other weakness or light headedness. In the ED, vitals were significant for temp 35.8C, HR 57, BP 168/99, 96% on RA. Labs were significant for hgb 9.1 (baseline around 10), NA 119, GFR 20, Cr 2.5 (Baseline around 2.2-2.5), Cl 88, ALP 238, BNP 558. She was admitted to medicine for management of hyponatremia. Admission Exam Per Admitting Provider Physical Exam Physical Exam: GENERAL: Sitting up in bed, alert, well appearing, well nourished, no distress, non-toxic. Morbidly obese EYE EXAM: normal conjunctiva. OROPHARYNX: no exudate, no erythema, lips, buccal mucosa, and tongue normal and mucous membranes are moist NECK: supple, no nuchal rigidity, no adenopathy, non-tender LUNGS: Clear to auscultation. Normal chest wall mechanics HEART: no murmurs, S1 normal and S2 normal ABDOMEN: abdomen soft, non-tender, normo-active bowel sounds, no masses, no rebound or guarding. UPPER EXTREMITIES: upper extremities are grossly normal. LOWER EXTREMITIES: Pitting edema in the bilateral lower extremities. healing 2cm wound on medial R lower leg without erythema or drainage NEURO EXAM: Normal sensorium, cranial nerves II-XII grossly intact, normal speech, no gross weakness of arms, no gross weakness of legs. Principal Diagnosis Acute on chronic hyponatremia Volume overload Acute Kidney Injury on CKD IV Hypocalcemia Vitamin D deficiency Discharge Data Allergies Allergy/AdvReac Type Severity Reaction Status Date / Time No Known Allergies Allergy Unverified 09/27/22 16:51 Consultations 09/27/22 16:30 Consult Nephrology Routine 09/27/22 16:56 ED Decision to Admit Stat Ordered Studies Laboratory Results WBC 5.72 K/ul (4.8-10.8) 10/02/22 06:52 RBC 3.01 M/uL (3.93-5.22) L 10/02/22 06:52 Hgb 9.2 g/dl (12.0-16.0) L 10/02/22 06:52 Hct 27.1 % (34.1-44.9) L 10/02/22 06:52 MCV 90.0 fL (80.0-100.0) 10/02/22 06:52 MCH 30.6 pg (25.0-34.0) 10/02/22 06:52 MCHC 33.9 g/dL (32.0-36.0) 10/02/22 06:52 RDW Std Deviation 41.0 fL (36.4-46.3) 10/02/22 06:52 RDW Coeff of Miguelangel 12.5 % (11.5-14.5) 10/02/22 06:52 Plt Count 182 K/uL (130-400) 10/02/22 06:52 MPV 9.5 fL (9.4-12.3) 10/02/22 06:52 Immature Gran % (Auto) 0.4 % 09/28/22 07:16 Neut % (Auto) 74.0 % 09/28/22 07:16 Lymph % (Auto) 16.3 % 09/28/22 07:16 Casey % (Auto) 7.2 % 09/28/22 07:16 Eos % (Auto) 1.5 % 09/28/22 07:16 Baso % (Auto) 0.6 % 09/28/22 07:16 Neut # (Auto) 4.04 K/uL (1.4-6.5) 09/28/22 07:16 Lymph # (Auto) 0.89 K/uL (1.2-3.4) L 09/28/22 07:16 Casey # (Auto) 0.39 K/uL (0.24-0.82) 09/28/22 07:16 Eos # (Auto) 0.08 K/uL (0-0.50) 09/28/22 07:16 Baso # (Auto) 0.03 K/uL (0-0.2) 09/28/22 07:16 Immature Gran # (Auto) 0.02 K/uL (0.00-0.02) 09/28/22 07:16 Sodium 135 mmol/L (136-145) L 10/02/22 06:52 Potassium 4.2 mmol/L (3.5-5.1) 10/02/22 06:52 Chloride 100 mmol/L (98-107) 10/02/22 06:52 Carbon Dioxide 26 mmol/L (21-32) 10/02/22 06:52 Anion Gap 9 (3-11) 10/02/22 06:52 BUN 70 mg/dl (6-23) H 10/02/22 06:52 Creatinine 3.48 mg/dl (0.6-1.2) H 10/02/22 06:52 Est Cr Clr Drug Dosing 18.0 ml/min 10/02/22 06:52 Est GFR ( Amer) 15.9 ml/min 10/02/22 06:52 Est GFR (Non-Af Amer) 13.7 ml/min 10/02/22 06:52 BUN/Creatinine Ratio 20.1 (10-20) H 10/02/22 06:52 Glucose 140 mg/dl (70-99(Fasting)) H 10/02/22 06:52 POC Glucose 116 mg/dl (70-99) H 10/02/22 11:30 Estimat Average Glucose 134 mg/dl 09/28/22 07:16 Hemoglobin A1c 6.3 % (4.5-5.6) H 09/28/22 07:16 Osmolality 269 mOsm/kg (280-300) L 09/27/22 15:37 Calcium 8.0 mg/dl (8.5-10.1) L 10/02/22 06:52 Phosphorus 5.7 mg/dl (2.5-4.9) H 10/01/22 06:11 Magnesium 2.1 mg/dl (1.7-2.4) 10/01/22 06:11 Total Bilirubin 0.4 mg/dl (0.2-1.0) 09/27/22 15:37 AST 13 U/L (13-39) 09/27/22 15:37 ALT 14 U/L (7-52) 09/27/22 15:37 Alkaline Phosphatase 238 U/L (34-104) H 09/27/22 15:37 B-Natriuretic Peptide 558 pg/ml (0-100) H 09/27/22 15:37 Total Protein 5.9 gm/dl (6.0-8.3) L 09/27/22 15:37 Albumin 3.2 gm/dl (3.4-5.0) L 09/27/22 15:37 Globulin 2.7 gm/dl (2.5-4.0) 09/27/22 15:37 Albumin/Globulin Ratio 1.2 (0.9-2) 09/27/22 15:37 25-OH Vitamin D Total 15.6 ng/ml (30-100) L 09/30/22 06:37 TSH 5.331 uIu/ml (0.300-4.500) H 09/27/22 15:37 Free T4 0.74 ng/dl (0.61-1.60) 09/27/22 15:37 Urine Color Yellow 09/27/22 19:00 Urine Appearance Clear (Clear) 09/27/22 19:00 Urine pH 7.0 (4.5-7.5) 09/27/22 19:00 Ur Specific [place] 1.006 (1.000-1.030) 09/27/22 19:00 Urine Protein 2+ (Negative) H 09/27/22 19:00 Urine Glucose (UA) Trace (Negative) H 09/27/22 19:00 Urine Ketones Negative (Negative) 09/27/22 19:00 Urine Blood 1+ (Negative) H 09/27/22 19:00 Urine Nitrite Positive (Negative) A 09/27/22 19:00 Urine Bilirubin Negative (Negative) 09/27/22 19:00 Urine Urobilinogen Negative (Negative) 09/27/22 19:00 Ur Leukocyte Esterase Trace (Negative) H 09/27/22 19:00 Urine WBC (Auto) 1-5 /hpf (0-5) 09/27/22 19:00 Urine RBC (Auto) 0-4 /hpf (0-4) 09/27/22 19:00 U Hyaline Cast (Auto) 0 /lpf (0-5) 09/27/22 19:00 U Epithel Cells (Auto) 0-5 /lpf (0-5) 09/27/22 19:00 Urine Bacteria (Auto) 1+ (Negative) H 09/27/22 19:00 Urine Osmolality 146 mOsm/kg (500-800) L 09/27/22 19:00 Ur Random Creatinine 9.6 mg/dl 09/27/22 19:00 Ur Random Creatinine 9.7 mg/dl 09/27/22 19:00 U Random Total Protein 139.8 mg/dl (0-11.9) H 09/27/22 19:00 Ur Random Sodium 36 mmol/L 09/27/22 19:00 Ur Random Urea Nitrogn 133 mg/dL 09/27/22 19:00 Protein/Creatinin Ratio 14.4 (0-0.2) H 09/27/22 19:00 Hepatitis C Ab (EIA) NON-REACTIVE (NON-REACTIVE) 09/28/22 07:16 Hep C Ab Signal/Cutoff 0.05 (<1.00) 09/28/22 07:16 SARS-CoV-2, RNA, NAAT NEGATIVE (NEGATIVE) 09/27/22 17:50 Impressions Chest X-Ray 09/27/22 15:56 XR chest 1V portable CLINICAL HISTORY: Weakness. Shortness of breath. COMPARISON STUDY: No previous studies for comparison. FINDINGS: There is no pneumothorax. Blunting of the right costophrenic angle suggests a trace right pleural effusion. Suspected trace left pleural effusion. Moderate enlargement of the cardiac silhouette is noted. There is pulmonary vascular congestion with possible mild pulmonary edema. No consolidation is identified to suggest pneumonia. IMPRESSION: 1. Cardiomegaly. Pulmonary vascular congestion with possible mild pulmonary edema. 2. Trace bilateral pleural effusions. ACT 112: Negative or not required by law. Electronically signed by: Hamilton Alexander M.D. 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 Pulmonary vascular congestion with possible mild pulmonary edema. Trace bilateral pleural effusions. - continue home medications --Diuresis as above (3) HTN (hypertension): - continue home meds (4) DM2 (diabetes mellitus, type 2): - A1c 6.3% - FSG AC+HS - continue home insulin - pharmacy glycemic consult placed - diabetic diet (5) HLD (hyperlipidemia): - continue statin (6) CKD (chronic kidney disease): - progressive kidney disease CAMILLA on CKD IV -- Follows with nephrology as outpatient - discussion of dialysis has been ongoing - monitor Cr 3.48 today - avoid nephrotoxic meds as able Monitor renal function (7) Anemia: - anemia of chronic disease, CKD - no signs of bleeding - Baseline Hb 9-10 -Monitor CBC (8) COPD (chronic obstructive pulmonary disease): - No signs of exacerbation - continue home inhalers Hypocalcemia Vit D deficiency Vit D levels:15.6 Replace Calcium as needed Continue Vit D supplements Monitor Plan DVT px: Heparin SQ Code Status: Full Code Disposition Home Total Time Total Time Spent Total Time Spent (In Minutes): 49 minutes Discharge Plan Discharge Items Patient Disposition: Home - Self-Care Reason For Visit: HYPONATREMIA Discharge Diagnosis: Acute on chronic hyponatremia Volume overload Acute Kidney Injury on CKD IV Hypocalcemia Vitamin D deficiency Activity: Per Instructions section Exercise/Sports: Gradually increase as tolerated Non-emergency contact: Primary Care Provider and Film Painter Call non-emergency contact if: you have any medication questions, your symptoms worsen, your pain is concerning for you and you have a fever Follow-up/Referrals: Jorge Harley MD [Surgeon] - (Date & Time 11/04/2022 10:20 AM Provider Jorge Harley MD Department Nephrology [facility] ) Rodger Laguerre MD [Primary Care Provider] - (Date & Time 10/07/2022 10:00 AM Provider Keith Cabezas PA-C Department Family Practice [facility] ) Diet: Carb Consistent or DM2 and Low Sodium (2gm) Fluids: 1500ml (6 cups) Addtl Attending Provider Instructions: Follow-up with your primary care physician on 10/07/2022 10:00 AM Follow-up with your car loader in 2 weeks -- Start taking torsemide 40 mg daily as recommended by your car loader --Recommend to limit fluid intake to 1.5 L/day --Get Blood test (basic metabolic panel) in 1 week and follow-up with your car loader with results. Seek immediate medical attention if your symptoms reoccur or worsen Please take all medications as instructed on discharge list below. Please call if you have any questions or problems. You can reach a [facility] hospitalist on duty at [facility] 24 hours a day by calling [phone] Pending Studies at Discharge: No Stand-Alone Forms: My [facility], Smoking Cessation Medications and DC Order Prescriptions: New cholecalciferol (vitamin D3) 25 mcg (1,000 unit) Capsule 1,000 unit PO QAM Qty: 30 0RF torsemide 40 mg tablet 40 mg PO DAILY Qty: 30 1RF Continued atorvastatin 40 mg tablet 40 mg PO QAM metoprolol succinate 50 mg tablet extended release 24 hr 50 mg PO QAM amlodipine 5 mg tablet 5 mg PO QAM aspirin 81 mg tablet,delayed release (DR/EC) 81 mg PO DAILY nicotine 21 mg/24 hr patch 24 hour 1 patch topical DIRECTED Rx Instructions: not using at present nystatin 100,000 unit/gram powder 1 applic TOPICAL DIRECTED pregabalin 25 mg capsule 25 mg PO TID fluticasone furoate-vilanterol [Breo Ellipta] 100-25 mcg/dose blister with device 1 ea INHALATION DAILY Toujeo Max U-300 SoloStar 300 unit/mL (3 mL) insulin pen 16 unit SUBCUT HS albuterol sulfate [Ventolin HFA] 90 mcg/actuation HFA aerosol inhaler 2 puff INHALATION Q4 PRN (Reason: Shortness Of Breath Or Wheezing) Spiriva Respimat 2.5 mcg/actuation mist 2 puff INHALATION QAM Trulicity 3 mg/0.5 mL pen injector 3 mg SUBCUT WE Discontinued furosemide 80 mg tablet 160 mg PO BID Rx Instructions: daughter states this dose, daughter says dr is going to change diuretic to torsemide. Discharge Orders: Discharge Order (Routine); Ordered 10/02/22 Ordered By: Chepe Sharp/Other Patient Handouts: Managing Type 2 Diabetes Admission Data Admit Date/Time: 09/27/22 16:30 Attending Provider: Chepe Perera Admit Provider: Reggie Pickett Primary Care Provider: Rodger Laguerre Other Providers: Jorge Harley ; Reggie Pickett
--- NOTE | 2022-10-02 13:13 | Nephrology Progress Note ---
Date of Service October 02, 2022 Assessment & Plan (1) Hyponatremia: Plan: hypervolemic hyponatremia. Sodium 124 yesterday>129 >132 > 135 today, acceptable rate of change. She does not have mental status changes. She however remains fluid overload. 3.1L negative past 24 hrs OK for hospital d/c NEPHRO D/C RECOMMENDATINOS -Fluid restriction of 1.5 L daily -d/c on torsemide 40 mg daily -check weekly bmp x 3 to be ordered by nephro RN -hospital discharge visit within 2 wks ideally w/ Dr Jorge Harley -daily standing weight -low sodium (<2 gm daily) diet care coordinated wt Dr Perera (2) CKD (chronic kidney disease): Plan: Patient with CKD stage IV due to diabetic nephropathy. Patient admitted with volume overload and hyponatremia. Will attempt aggressive diuresis. Patient is close to needing dialysis particularly if she fails diuresis. baseline creatinine 2.7-3.1. -Monitor renal function daily BMP -Avoid nephrotoxins such as contrast and renally dose medication for current GFR. -f/u w/ claims service adjustor Admission and Anticipated Discharge Date Admission Date: September 27, 2022 Subjective seen on rounds at about 1300; feeling well; eager for d/c; low na diet and fluid limit and daily wts discussed Review of Systems Review of Systems: All systems reviewed & are unremarkable except as noted in Subjective Physical Exam Constitutional: well developed and well nourished Eyes: EOM intact bilaterally ENMT: Ears: no external ear abnormality Nose: no external nose abnormality Mouth: + dry oral mucous membranes Neck: no nuchal rigidity Respiratory: normal respiratory effort Auscultation: + diminished lung sounds and + crackles (fine bibasilar) Cardiovascular: Rate/Rhythm: regular rate and regular rhythm Extremities: + edema (1-2+pedal dependent ) Gastrointestinal (Abdomen): Inspection/Auscultation: normal bowel sounds Percussion/Palpation: abdomen soft; abdomen nontender Musculoskeletal: Extremities: strength 5/5 throughout Skin: no rashes, warm and dry Results & Data ([facility]) Vital Signs (Past 12 Hours) Vital Signs Temp Pulse Pulse Resp BP BP Pulse Ox 10/02/22 12:58 36.5 C 87 18 165/71 H 134/79 97 10/02/22 11:21 36.5 C 87 18 134/79 97 10/02/22 07:00 87 10/02/22 07:00 10/02/22 07:00 36.4 C L 68 18 132/74 96 10/02/22 03:14 36.3 C L 84 18 145/82 H 96 O2 Del Method 10/02/22 12:58 10/02/22 11:21 Room Air 10/02/22 07:00 10/02/22 07:00 Room Air 10/02/22 07:00 Room Air 10/02/22 03:14 Room Air Laboratory Results 10/02/22 06:52 10/02/22 06:52
[2022-10-03] MEDS ORDERED: TORSEMIDE 10 MG TAB PO SCH (09:00)
== END 2022-10-02 14:13 | disposition home or self-care (01) | DRG 699 ==
LOC: ED 14:51 → SUATTDRO 16:30 → 2S 16:30